=== PATIENT | male | born 1970 | race Caucasian/White ===

== ENCOUNTER 2020-01-26 08:04 | Inpatient (IN) | payer SELFPAY ==
[~2020-01-26] VITALS: Ht 172.7 cm; Wt 80.6 kg
[2020-01-26] VITALS (12 sets, daily range): BP systolic 69–119; BP diastolic 47–65
--- NOTE | 2020-01-26 08:37 | PHYS DOC ---
Past Medical History Past Medical History: Diverticulitis Past Surgical History: No Surgical History Smoking Status: Current Every Day Smoker Alcohol Use: Heavy Adult General Chief Complaint Chief Complaint: MULTIPLE COMPLAINTS HPI HPI Patient is a 49-year-old male who is a heavy drinker. He drinks more than a liter of wine every day. He states approximately 2 weeks ago he developed a dry hacking cough was treated with an albuterol inhaler and some cough medicine. He states the cough has gotten better but he's become profoundly weak. He's noticed that his urine is very dark in color. He denies any fever chills or sweats. He denies any hemoptysis or hematemesis. He denies any melena. He has been nauseous and not eating or drinking much. He has continued to smoke. He is stopped his wine approximately 3 days ago.[] Review of Systems Review of Systems Constitutional: Denies fever or chills [] Eyes: Denies change in visual acuity, redness, or eye pain [] HENT: Denies nasal congestion or sore throat [] Respiratory: Per history of present illness[] Cardiovascular: No additional information not addressed in HPI [] GI: Has been nauseous[] : Reports dark urine[] Musculoskeletal: Denies back pain or joint pain [] Integument: Denies rash or skin lesions [] Neurologic: Reports generalized weakness[] Endocrine: Denies polyuria or polydipsia [] All other systems were reviewed and found to be within normal limits, except as documented in this note. Current Medications Current Medications Current Medications Medications (Trade) Dose Ordered Sig/Akhil Start Time Stop Time Status Last Admin Dose Admin Albuterol/ Ipratropium (Duoneb) 3 ml 1X ONCE 01/26/20 08:45 01/26/20 08:46 DC 01/26/20 08:49 3 ML Famotidine (Pepcid Vial) 20 mg 1X ONCE 01/26/20 08:45 01/26/20 08:46 DC 01/26/20 09:05 20 MG Ondansetron HCl (Zofran) 4 mg PRN Q8HRS PRN 01/26/20 10:15 01/27/20 10:14 Potassium Chloride/Water 100 ml @ 50 mls/hr 1X ONCE 01/26/20 10:15 01/26/20 12:14 01/26/20 10:27 50 MLS/HR Potassium Chloride (Klor-Con) 40 meq 1X ONCE 01/26/20 10:15 01/26/20 10:17 DC 01/26/20 10:27 40 MEQ Sodium Chloride 1,000 ml @ 1,000 mls/hr 1X ONCE 01/26/20 10:30 01/26/20 11:29 01/26/20 10:30 1,000 MLS/HR Allergies Allergies Allergies Coded Allergies Type Severity Reaction Last Updated Verified No Known Drug Allergies 01/26/20 No Physical Exam Physical Exam Constitutional: Well developed, well nourished, no acute distress, non-toxic appearance. [] HENT: Normocephalic, atraumatic, bilateral external ears normal, oropharynx moist, no oral exudates, nose normal. [] Eyes: Pronounced scleral icterus. [] Neck: Normal range of motion, no tenderness, supple, no stridor. [] Cardiovascular:Heart rate regular rhythm, no murmur [] Lungs & Thorax: Bilateral breath sounds clear to auscultation [] Abdomen: Bowel sounds normal, soft, no tenderness, no masses, no pulsatile masses. [] Skin: Warm, dry, no erythema, no rash. [] Back: No tenderness, no CVA tenderness. [] Extremities: No tenderness, no cyanosis, no clubbing, ROM intact, no edema. [] Neurologic: Alert and oriented X 3, normal motor function, normal sensory function, no focal deficits noted. [] Psychologic: Affect normal, judgement normal, mood normal. [] Current Patient Data Vital Signs Vital Signs Date Time Temp Pulse Resp B/P (MAP) Pulse Ox O2 Delivery O2 Flow Rate FiO2 01/26/20 08:51 99 Room Air 01/26/20 08:32 97.7 92 20 103/55 (71) 97.7 Lab Values Laboratory Tests Test 01/26/20 08:18 01/26/20 09:39 White Blood Count 19.7 x10^3/uL (4.0-11.0) H Red Blood Count 4.70 x10^6/uL (4.30-5.70) Hemoglobin 16.0 g/dL (13.0-17.5) Hematocrit 45.9 % (39.0-53.0) Mean Corpuscular Volume 98 fL (79-100) Mean Corpuscular Hemoglobin 34 pg (25-35) Mean Corpuscular Hemoglobin Concent 35 g/dL (31-37) Red Cell Distribution Width 15.2 % (11.5-14.5) H Platelet Count 44 x10^3/uL (140-400) L Neutrophils (%) (Auto) 93 % (31-73) H Lymphocytes (%) (Auto) 1 % (24-48) L Monocytes (%) (Auto) 2 % (0-9) Eosinophils (%) (Auto) 4 % (0-3) H Basophils (%) (Auto) 0 % (0-3) Neutrophils # (Auto) 18.3 x10^3/uL (1.8-7.7) H Lymphocytes # (Auto) 0.1 x10^3/uL (1.0-4.8) L Monocytes # (Auto) 0.4 x10^3/uL (0.0-1.1) Eosinophils # (Auto) 0.8 x10^3/uL (0.0-0.7) H Basophils # (Auto) 0.0 x10^3/uL (0.0-0.2) Platelet Estimate Pending Sodium Level 124 mmol/L (136-145) L Potassium Level 2.0 mmol/L (3.5-5.1) *L Chloride Level 83 mmol/L (98-107) L Carbon Dioxide Level 24 mmol/L (21-32) Anion Gap 17 (6-14) H Blood Urea Nitrogen 107 mg/dL (8-26) H Creatinine 5.8 mg/dL (0.7-1.3) H Estimated GFR (Cockcroft-Gault) 10.4 BUN/Creatinine Ratio 18 (6-20) Glucose Level 113 mg/dL (70-99) H Calcium Level 7.5 mg/dL (8.5-10.1) L Total Bilirubin 11.4 mg/dL (0.2-1.0) H Aspartate Amino Transferase (AST) 319 U/L (15-37) H Alanine Aminotransferase (ALT) 204 U/L (16-63) H Alkaline Phosphatase 324 U/L (46-116) H Total Protein 5.4 g/dL (6.4-8.2) L Albumin 1.4 g/dL (3.4-5.0) L Albumin/Globulin Ratio 0.4 (1.0-1.7) L Lipase 97 U/L (73-393) Influenza Type A Antigen Negative (NEGATIVE) Influenza Type B Antigen Negative (NEGATIVE) Laboratory Tests 01/26/20 08:18 Laboratory Tests 01/26/20 08:18 EKG EKG EKG: Normal sinus rhythm rate of [address]-T changes[] Radiology/Procedures Radiology/Procedures []REASON: dry cough x2 weeks PROCEDURE: CHEST AP ONLY EXAM: Chest, single view. HISTORY: Cough. COMPARISON: None. FINDINGS: A frontal view of the chest is obtained. There is no infiltrate, pleural effusion or pneumothorax. The heart is normal in size. IMPRESSION: No acute pulmonary finding. Course & Med Decision Making Course & Med Decision Making Pertinent Labs and Imaging studies reviewed. (See chart for details) [CRITICAL CARE: Time spent was 35 minutes. This includes medical management, evaluation, reevaluation, discussion with consultants and family. Critical Care does NOT include time spent on separately billed procedures. ] ED course: Evaluation reveals a 49-year-old male with 2 week history of weakne ss. His laboratory studies were alarming. He is in acute liver failure with a bilirubin of greater than 11. He is also an acute renal failure. He had a total of 2 L of normal saline during his stay in the department. His potassium was low he was supplemented with 40 mEq of potassium chloride by mouth and 20 mEq IV. I did talk with the patient and his about his condition. Patient will be admitted to the ICU under the care of Dr. Moran with nephrology and gastroenterology consults. Dragon Disclaimer Dragon Disclaimer This electronic medical record was generated, in whole or in part, using a voice recognition dictation system. Departure Departure Impression: Primary Impression: Acute renal failure Additional Impressions: Hypokalemia Acute hepatitis Disposition: ADMITTED INPATIENT Admitting Physician: DARRYN Condition: GUARDED Problem Qualifiers Primary Impression: Acute renal failure Acute renal failure type: unspecified Qualified Codes: N17.9 - Acute kidney failure, unspecified ROSE WARNER DO Jan 26, 2020 08:37
[2020-01-26] MEDS ORDERED: IPRATRPIUM/ALBUTEROL 0.5/2.5MG 3 ML NEBU. NEB ONE (08:45)
[2020-01-26] MEDS ORDERED: IV NORMAL SALINE 1000ML BAG 1,000 ML IV ONE ×2 (08:45→10:30)
[2020-01-26] MEDS ORDERED: FAMOTIDINE 20 MG/2 ML VIAL IVP ONE (08:45)
--- NOTE | 2020-01-26 08:47 | RAD ---
EXAM: Chest, single view. HISTORY: Cough. COMPARISON: None. FINDINGS: A frontal view of the chest is obtained. There is no infiltrate, pleural effusion or pneumothorax. The heart is normal in size. IMPRESSION: No acute pulmonary finding. Electronically signed by: Sarah Zhong MD (01/26/2020 8:45 AM) [id number]
[2020-01-26 09:27] LABS: BASO % 0 % (0-3); EOS # 0.8 x10^3/uL (0.0-0.7); EOS % 4 % (0-3); HEMATOCRIT 45.9 % (39.0-53.0); LYMPH # 0.1 x10^3/uL (1.0-4.8); LYMPH % 1 % (24-48); MEAN CORPUSCULAR HEMOGLOBIN 34 pg (25-35); MEAN CORPUSCULAR HGB CONC 35 g/dL (31-37); MEAN CORPUSCULAR VOLUME 98 fL (79-100); MONO # 0.4 x10^3/uL (0.0-1.1); MONO % 2 % (0-9); NEUT # 18.3 x10^3/uL (1.8-7.7); NEUT % 93 % (31-73); RED CELL DISTRIBUTION WIDTH 15.2 % (11.5-14.5); WHITE BLOOD COUNT 19.7 x10^3/uL (4.0-11.0)
[2020-01-26 09:57] LABS: ALBUMIN 1.4 g/dL (3.4-5.0); ALBUMIN/GLOBULIN RATIO 0.4 (1.0-1.7); CALCIUM 7.5 mg/dL (8.5-10.1); CREATININE 5.8 mg/dL (0.7-1.3); GFR 10.4; TOTAL BILIRUBIN 11.4 mg/dL (0.2-1.0); TOTAL PROTEIN 5.4 g/dL (6.4-8.2)
[2020-01-26 10:09] LABS: INFLUENZA A PATIENT NEGATIVE (NEGATIVE); INFLUENZA B PATIENT NEGATIVE (NEGATIVE)
[2020-01-26] MEDS ORDERED: POTASSIUM CHLORIDE 20 MEQ TABLET.ER. PO ONE (10:15)
[2020-01-26] MEDS ORDERED: POTASSIUM CHLORIDE 20MEQ 100 ML IV ONE (10:15)
[2020-01-26] MEDS ORDERED: ONDANSETRON PF 4 MG/2 ML VIAL. IV PRN (10:15)
[2020-01-26 10:40] LABS: PLATELET COUNT 44 x10^3/uL (140-400)
[2020-01-26] MEDS ORDERED: POTASSIUM CHLORIDE 20 MEQ in IV NORMAL SALINE 1000ML BAG 1,000 ML IV SCH (10:45)
[2020-01-26 10:59] LABS: % BANDS 6 % (0-9); % LYMPHS 2 % (24-48); % SEGS 92 % (35-66); PLT ESTIMATE DECREASED (ADEQUATE)
--- NOTE | 2020-01-26 12:00 | NUR ---
Pt to room 110 from ED. A&Ox4. Pt placed on monitor. Oriented to ICU. VSS. Will monitor.
[2020-01-26] MEDS ORDERED: PIP/TAZO PER PHARMACY MC PRN (13:30)
[2020-01-26] MEDS ORDERED: VANCOMYCIN PER PHARMACY MC PRN (13:30)
[2020-01-26] MEDS: PIPERACILLIN/TAZOBACTAM 2.25 GM in IV NORMAL SALINE 50ML 50 ML IV SCH (13:41)
--- NOTE | 2020-01-26 13:49 | HP ---
ADMIT DATE: 01/26/2020 CHIEF COMPLAINT: Hacking cough, possible alcohol withdrawal, profound weakness, dark urine, and jaundice. HISTORY OF PRESENT ILLNESS: The patient is a pleasant middle-aged male who drinks 5 liters of wine a day, basically presented with the above chief complaints. He appears quite jaundiced. His white count is 19,000. His bilirubin is high at 11.4. He has multiple electrolyte disturbances including potassium of 2.0 and multiple others such as BUN of 107, creatinine of 5.8 and sodium of 124. I discussed the case with ER physician. We are going to admit the patient and he is going to the ICU with several consultations including GI and Nephrology. PAST MEDICAL HISTORY: Chronic alcoholism, diverticulitis, tobacco abuse. ALLERGIES: None. FAMILY HISTORY: Diabetes. SOCIAL HISTORY: He drinks and smokes heavily. MEDICATIONS: Reviewed, please refer to the MRAD. REVIEW OF SYSTEMS: GENERAL: No history of weight change, weakness or fevers. SKIN: He complains of yellow skin. EYES: No blurred, double or loss of vision. NOSE AND THROAT: No history of nosebleeds, hoarseness or sore throat. HEART: No history of palpitations, chest pain or shortness of breath on exertion. LUNGS: He complains of cough. GASTROINTESTINAL: Denies changes in appetite, nausea, vomiting, diarrhea or constipation. GENITOURINARY: He complains of dark urine. NEUROLOGIC: He complains of weakness. PSYCHIATRIC: No history of panic, anxiety or depression. ENDOCRINE: No history of heat or cold intolerance, polyuria or polydipsia. EXTREMITIES: Denies muscle weakness, joint pain, pain on walking or stiffness. PHYSICAL EXAMINATION: VITALS: Within normal limits and are stable. GENERAL: No apparent distress. Alert and oriented. HEENT: Normal cephalic atraumatic, external auditory canals are patent. Eyes: Extraocular muscles are intact, pupils are equally round and reactive to light and accommodation. MUSKULOSKELETAL: Well developed, well nourished, good range of motion. ENDOCRINE: No thyromegaly was palpated. LYMPHATICS: No cervical chain or axillary nodes were noted. HEMATOPOIETIC: No bruising. NECK: Supple, no JVD, no thyromegaly was noted. LUNGS: Clear to auscultation in all lung desai without rhonchi or wheezing. HEART: RRR, S1, S2 present. Peripheral pulses intact, no obvious murmurs were noted. ABDOMEN: He has some mild distention with decreased bowel sounds. EXTREMITIES: Without any cyanosis, clubbing, or edema. Pedal pulses intact, Homans sign is negative. NEUROLOGIC: He is profoundly weak. PSYCHIATRIC: He is little depressed. SKIN: He is jaundiced. VASCULAR: Good capillary refill, neurovascular bundle appears to be intact. LABORATORY DATA: Electrolytes: Sodium 124, potassium 2.0, chloride 83, bicarbonate 24, BUN 107, creatinine 5.8, glucose 113. White count 19, hemoglobin 16, platelets 44. Influenza testing is negative. His AST is high at 319 and ALT 204. ASSESSMENT AND PLAN: Acute on chronic renal failure, multiple electrolyte disturbances, hypokalemia, severe alcoholism, leukocytosis, and transaminitis. The patient has been admitted to the ICU. We are going to replace his potassium, give him IV fluids. Consult Nephrology. Consult GI. Consult Infectious Disease. We will check an INR to help clarify his hepatic status. Empiric IV antibiotics. Prognosis is extremely guarded, long term care phlebotomist. He is critically ill. TOTAL TIME: 31 minutes. DEVIN PUGA DO DR: TAVARES/luisito JOB#: [id number] / [id number]
--- NOTE | 2020-01-26 14:00 | NUR ---
BP continues to be low 80's/30'S. Pt is high on sepsis screening. Pt has had no urine output since admission and pt states he's not had any urine output x 2 days. Repeat potassium = 2.5. Call placed to Dr. Castle. Orders received.
--- NOTE | 2020-01-26 14:14 | NUR ---
Pharmacy Vancomycin Dosing Note S:Consulted to monitor and dose vancomycin started 01/26/20. O:MARISEL GONZALEZ is a 49 year old M with Empiric. Height: 5 feet, 8 inches Weight: 74.5 kg Crowley Body Weight: 68.40 Adjusted Body Weight: 70.84 Dosing Weight: Actual Other Antibiotics: ZOSYN LABS: Last BUN: 107 Last Creatinine: 5.8 Creatinine Clearance: 15 mL/min Last WBC: 19.7 Tmax (past 24 hours): 97.7 Microbiology: I/O: -- Drug Levels: Last dose given 01/26/20 at 1341 Vancomycin Dosing: Loading Dose: 1750 mg x1 Dosing Weight: Actual Target Trough: 10-20 A: Based on: P: 1. Hold further vancomycin dosing until after random level. 2. Follow up Random level on 01/28/20 at 1400 3. Pharmacy will continue to monitor, follow and adjust therapy as needed. JINNY BRYANT RPH, 01/26/20 [id number]
[2020-01-26] MEDS ORDERED: VANCOMYCIN 1.75 GM in IV NORMAL SALINE 500ML BAG 500 ML IV ONE (14:30)
[2020-01-26 15:04] LABS: CALCIUM 6.7 mg/dL (8.5-10.1); CREATININE 5.2 mg/dL (0.7-1.3); GFR 11.8; MAGNESIUM 2.2 mg/dL (1.8-2.4)
[2020-01-26 15:07] LABS: POTASSIUM 2.5 mmol/L (3.5-5.1)
[2020-01-26] MEDS ORDERED: LORazepam 1 MG TABLET PO PRN (15:15)
[2020-01-26] MEDS ORDERED: ALBUMIN HUMAN 5% 500 ML IV SCH (15:45)
[2020-01-26] MEDS ORDERED: ALBUMIN HUMAN 5% 500 ML IV ONE (15:45)
[2020-01-26] MEDS: POTASSIUM CHLORIDE 10MEQ 100 ML IV SCH ×7 (16:02→23:59)
--- NOTE | 2020-01-26 16:59 | PDOC ---
Infectious Disease Note Vital Sign Vital Signs Vital Signs Date Time Temp Pulse Resp B/P (MAP) Pulse Ox O2 Delivery O2 Flow Rate FiO2 01/26/20 15:00 84 24 82/52 (62) Room Air 01/26/20 13:00 99 01/26/20 12:00 97.8 97.8 Labs Lab Laboratory Tests Test 01/26/20 08:18 01/26/20 09:39 01/26/20 14:45 White Blood Count 19.7 x10^3/uL (4.0-11.0) Red Blood Count 4.70 x10^6/uL (4.30-5.70) Hemoglobin 16.0 g/dL (13.0-17.5) Hematocrit 45.9 % (39.0-53.0) Mean Corpuscular Volume 98 fL (79-100) Mean Corpuscular Hemoglobin 34 pg (25-35) Mean Corpuscular Hemoglobin Concent 35 g/dL (31-37) Red Cell Distribution Width 15.2 % (11.5-14.5) Platelet Count 44 x10^3/uL (140-400) Neutrophils (%) (Auto) 93 % (31-73) Lymphocytes (%) (Auto) 1 % (24-48) Monocytes (%) (Auto) 2 % (0-9) Eosinophils (%) (Auto) 4 % (0-3) Basophils (%) (Auto) 0 % (0-3) Neutrophils # (Auto) 18.3 x10^3/uL (1.8-7.7) Lymphocytes # (Auto) 0.1 x10^3/uL (1.0-4.8) Monocytes # (Auto) 0.4 x10^3/uL (0.0-1.1) Eosinophils # (Auto) 0.8 x10^3/uL (0.0-0.7) Basophils # (Auto) 0.0 x10^3/uL (0.0-0.2) Segmented Neutrophils % 92 % (35-66) Band Neutrophils % 6 % (0-9) Lymphocytes % 2 % (24-48) Platelet Estimate Decreased (ADEQUATE) Prothrombin Time 21.0 SEC (11.7-14.0) Prothromb Time International Ratio 1.8 (0.8-1.1) Sodium Level 124 mmol/L (136-145) 129 mmol/L (136-145) Potassium Level 2.0 mmol/L (3.5-5.1) 2.5 mmol/L (3.5-5.1) Chloride Level 83 mmol/L (98-107) 92 mmol/L (98-107) Carbon Dioxide Level 24 mmol/L (21-32) 20 mmol/L (21-32) Anion Gap 17 (6-14) 17 (6-14) Blood Urea Nitrogen 107 mg/dL (8-26) 105 mg/dL (8-26) Creatinine 5.8 mg/dL (0.7-1.3) 5.2 mg/dL (0.7-1.3) Estimated GFR (Cockcroft-Gault) 10.4 11.8 BUN/Creatinine Ratio 18 (6-20) Glucose Level 113 mg/dL (70-99) 101 mg/dL (70-99) Calcium Level 7.5 mg/dL (8.5-10.1) 6.7 mg/dL (8.5-10.1) Total Bilirubin 11.4 mg/dL (0.2-1.0) Aspartate Amino Transf (AST/SGOT) 319 U/L (15-37) Alanine Aminotransferase (ALT/SGPT) 204 U/L (16-63) Alkaline Phosphatase 324 U/L (46-116) Total Protein 5.4 g/dL (6.4-8.2) Albumin 1.4 g/dL (3.4-5.0) Albumin/Globulin Ratio 0.4 (1.0-1.7) Lipase 97 U/L (73-393) Influenza Type A Antigen Negative (NEGATIVE) Influenza Type B Antigen Negative (NEGATIVE) Magnesium Level 2.2 mg/dL (1.8-2.4) Objective Assessment ? sepsis Leukocytosis JHONY w/ electrolyte imbalances Acute hepatic failure Alcoholism Tobaccoism Plan Plan of Care D/c vancomycin given JHONY Continue Zosyn, renally dosed BC x 2 UA pending Await renal and GI input Monitor labs values Maintain aspiration precautions D/w nursing Critically ill Thank you [id number] Patient seen and examined. Chart reviewed in detail. Case discussed with LIBERAL ARTS DEAN agree with above plan. BETO GUPTA APRN Jan 26, 2020 16:59 TELMA COFFEY MD Jan 26, 2020 21:38
--- NOTE | 2020-01-26 17:20 | CONS ---
DATE OF CONSULTATION: 01/26/2020 This is Luis Antonio Sue, nurse practitioner dictating for Dr. Telma Xie, Infectious Disease. REFERRING PHYSICIAN: Kong De La Torre DO REASON FOR CONSULTATION: Probable sepsis. HISTORY OF PRESENT ILLNESS: This patient is a 49-year-old male who presented with a 2-week history of generalized weakness. He was recently seen at an urgent care center for a dry hacking cough. He was treated without an albuterol inhaler and cough medicine. The cough has since resolved. However, he continues to feel weak, fatigued and not feeling very well. On arrival to the ER, he was afebrile. He was found to have an elevated white blood cell count of 19,700. He was in acute renal failure with a creatinine of 5.8, BUN 107. Electrolytes were abnormal. He was jaundiced with a bilirubin of 11.4 and also elevated liver enzymes. Influenza screen was negative. Chest x-ray was normal. Urinalysis is pending. He was dosed with vancomycin and Zosyn for probable sepsis and admitted to the Intensive Care Unit. The patient has been having some abdominal pain associated with nausea and vomiting. He says he has been having some fevers, chills and body aches. He complains of urinary urgency, but has only been able to void once in the last 24 hours. His urine has been dark. He also has noticed his stools are pale. He and his have not noticed any skin color change. He normally drinks about a liter of wine a day, but has not in the last several days or so. He denies taking medication other than the recent albuterol inhaler and cough medicine. He denies having any known kidney or liver problems. Denies recent antibiotics prior to admission. PAST MEDICAL HISTORY: No significant past medical history. PAST SURGICAL HISTORY: Right arm orthopedic surgery. SOCIAL HISTORY: The patient is and lives at home. He is employed performing a maintenance type work. He smokes a pack a day. He normally drinks about a liter of wine a day. History of substance abuse. FAMILY HISTORY: Diabetes. MEDICATIONS: Vancomycin, Zosyn, albumin, IV fluids, potassium, DuoNeb and Zofran. ALLERGIES: No known drug allergies. REVIEW OF SYSTEMS: Per HPI, otherwise all other review of systems is negative. PHYSICAL EXAMINATION: VITAL SIGNS: Temperature is 97.8, blood pressure 82/52, heart rate 84, respiratory rate 24, pulse oximetry is 99% on room air. BMI 25. HEENT: Pupils equally round. Mild icterus. Oral cavity pink and dry. Dentures in place. NECK: Supple. LUNGS: Clear to auscultation. CARDIAC: S1 and S2 regular. ABDOMEN: Nondistended, soft. No guarding or rebound. Bowel sounds present. EXTREMITIES: No gross edema or cyanosis. SKIN: Warm to touch. No signs of rash. Jaundice. NEUROLOGIC: Alert and answering questions appropriately. LABORATORY DATA: Today's WBC 19.7, hemoglobin 16.0, platelets 44,000, segs 92%, bands 6%. Sodium 129 from 124, potassium 2.5, creatinine 5.2, BUN 105, glucose 101. Total bilirubin 11.4, AST 319, ALT 204, alkaline phosphatase 324. Albumin 1.4. Lipase 97. Influenza screen negative. Chest x-ray is unremarkable. Urinalysis is pending. Hepatitis panel is pending. IMPRESSION: 1. Questionable sepsis. 2. Leukocytosis. 3. Acute kidney injury with electrolyte imbalances. 4. Acute hepatic failure. 5. Alcoholism. 6. Tobaccoism. PLAN: 1. Discontinue the vancomycin given acute kidney injury. 2. Continue the Zosyn renally dose. 3. Monitor platelets closely. 4. Obtain blood cultures x 2. 5. Await renal and GI input. 6. Maintain aspiration precautions. 7. Discussed with nursing. 8. Critically ill. Thank you, Dr. De La Torre, for asking us to participate in this patient's care. Should you have further questions or concerns, please call. TELMA COFFEY MD DR: CHANELLE/luisito JOB#: [id number] / [id number]
[2020-01-26] MEDS ORDERED: cloNIDine HCL 0.1 MG TABLET PO PRN (17:45)
[2020-01-26] MEDS: diphenhydrAMINE 50 MG/ML VIAL IVP PRN (18:15)
[2020-01-26] MEDS: HALOPERIDOL LACTATE 5 MG/ML VIAL. IVP PRN (18:23)
[2020-01-26] MEDS ORDERED: IV NORMAL SALINE 500ML BAG 500 ML IV PRN (18:45)
[2020-01-26] MEDS ORDERED: ATROPINE 0.5 MG/5 ML DISP.SYRINGE. IV PRN (18:45)
--- NOTE | 2020-01-26 18:45 | NUR ---
at 1815 pt began vigorously shivering, making a continual grunting noise. Pt stated he was freezing and couldn't get comfortable. Pt appearing to be starting alcohol withdrawals. Pt given withdrawal medications per protocol. Call to Dr. De La Torre, received precedex order. Temperature rechecked - 103.2 axillary. ID paged. Ice packs placed on patient.
[2020-01-26] MEDS: DEXMEDETOMIDINE 400 MCG in IV NORMAL SALINE 100ML 96 ML IV PRN (18:57)
[2020-01-26 20:57] LABS: CALCIUM 6.4 mg/dL (8.5-10.1); CREATININE 5.2 mg/dL (0.7-1.3); GFR 11.8
--- NOTE | 2020-01-26 20:58 | EKG ---
[facility] [address] [place] [address] Test Date: 2020-01-26 Test Time: 10:47:14 Pat Name: MARISEL GONZALEZ Department: Room: Gender: M Unit Educator: : 1970 Requested By: ROSE WARNER Order Number: [id number] Reading MD: Measurements Intervals [place] Rate: 91 P: MO: QRS: 32 QRSD: 122 T: 28 QT: 340 QTc: 425 Interpretive Statements ATRIAL FLUTTER ABNORMAL ECG RI6.01 No previous ECG available for comparison
[2020-01-26 21:06] LABS: POTASSIUM 2.9 mmol/L (3.5-5.1)
--- NOTE | 2020-01-26 21:45 | NUR ---
critically low potassium paged and reported to Dr De La Torre, new orders received. will pass on in report, will continue to closely monitor.
[2020-01-26] MEDS ORDERED: IV NORMAL SALINE 500ML BAG 500 ML IV ONE (22:00)
--- NOTE | 2020-01-26 22:26 | CONS ---
DATE OF CONSULTATION: REQUESTING PHYSICIAN: Hospitalist. REASON FOR CONSULTATION: Renal failure. HISTORY OF PRESENT ILLNESS: A 49-year-old gentleman with history of alcoholism. The patient presents with weakness, cough, and jaundice. Laboratories are notable for kidney failure and liver failure. In this setting, Nephrology evaluation is requested. The patient in addition to excessive alcohol use of 5 liters of wine a day, has apparently also been taking a significant number of ibuprofen. PAST MEDICAL HISTORY: Alcoholism, diverticulitis, and tobacco use. ALLERGIES: None. MEDICATIONS: Noted, reviewed per medication list. FAMILY HISTORY: Noncontributory. SOCIAL HISTORY: The patient drinks 5 liters of wine a day. He smokes. REVIEW OF SYSTEMS: No headache, sinus problem, nasal drainage, epistaxis, change in vision or hearing. No difficulty swallowing. No fever, chills, cough, sputum production or hemoptysis. No chest pain, shortness of breath, PND, orthopnea, dyspnea on exertion. No abdominal distention. He has had jaundice and icterus. No seizures or malignancies. PHYSICAL EXAMINATION: GENERAL APPEARANCE: The patient is awake and conversant. HEENT: Scleral icterus bilaterally. Marked jaundice. NECK: No increased JVD. No thyromegaly, mass, or adenopathy. LUNGS: Clear. CARDIAC: Without S3 or rub. ABDOMEN: Distended, soft, nontender. EXTREMITIES: No edema. NEUROLOGIC: Nonfocal, nonlocalizing. PSYCHIATRIC: Fair attention to detail. Dysphoric affect. SKIN: Jaundice. LABORATORY DATA: Sodium 124, potassium 2, chloride 83, CO2 of 24, BUN 107, creatinine 5.8, GFR is 10, and calcium 7.5. Total bilirubin 11.4, AST 319, ALT 204, alkaline phosphatase 324, total protein ____, and lipase 97. White count 19 7, hemoglobin 16, hematocrit 45.9, and platelets 144. Influenza A and B are negative. IMPRESSION: Liver failure with renal failure -- may in part have prerenal state. He also likely has acute tubular necrosis and/or interstitial nephritis associated with nonsteroidal anti-inflammatory drug use. Certainly may have ensuing hepatorenal syndrome as well. RECOMMENDATIONS: 1. Fluid balance. 2. Supplement, potassium is extremely low. 3. Assess magnesium level, is likely to be low as well. 4. No need for acute dialysis, but likely will be needed. We will follow. JUAN JOSÉ CORDERO MD DR: RADHA/luisito JOB#: [id number] / [id number]
[2020-01-26] MEDS: NOREPINEPHRINE VIAL 8 MG in IV DEXTROSE 5% 250 ML IV PRN (22:58)
[2020-01-27] VITALS (26 sets, daily range): BP systolic 69–157; BP diastolic 46–78
[2020-01-27] MEDS: PIPERACILLIN/TAZOBACTAM 2.25 GM in IV NORMAL SALINE 50ML 50 ML IV SCH ×2 (00:05→06:05)
[2020-01-27] MEDS: POTASSIUM CHLORIDE 10MEQ 100 ML IV SCH (00:53)
[2020-01-27 04:26] LABS: BASO % 0 % (0-3); EOS # 0.4 x10^3/uL (0.0-0.7); EOS % 2 % (0-3); HEMATOCRIT 38.4 % (39.0-53.0); HEMOGLOBIN 13.2 g/dL (13.0-17.5); LYMPH # 0.3 x10^3/uL (1.0-4.8); LYMPH % 1 % (24-48); MEAN CORPUSCULAR HEMOGLOBIN 34 pg (25-35); MEAN CORPUSCULAR HGB CONC 34 g/dL (31-37); MEAN CORPUSCULAR VOLUME 99 fL (79-100); MONO # 0.8 x10^3/uL (0.0-1.1); MONO % 4 % (0-9); NEUT # 17.3 x10^3/uL (1.8-7.7); NEUT % 92 % (31-73); PLATELET COUNT 33 x10^3/uL (140-400); RED BLOOD COUNT 3.88 x10^6/uL (4.30-5.70); RED CELL DISTRIBUTION WIDTH 15.2 % (11.5-14.5); WHITE BLOOD COUNT 18.8 x10^3/uL (4.0-11.0)
[2020-01-27 04:45] LABS: ALBUMIN 1.6 g/dL (3.4-5.0); ALBUMIN/GLOBULIN RATIO 0.5 (1.0-1.7); CALCIUM 6.6 mg/dL (8.5-10.1); CREATININE 5.1 mg/dL (0.7-1.3); GFR 12.1; MAGNESIUM 2.1 mg/dL (1.8-2.4); POTASSIUM 3.1 mmol/L (3.5-5.1); TOTAL BILIRUBIN 11.6 mg/dL (0.2-1.0); TOTAL PROTEIN 4.7 g/dL (6.4-8.2)
[2020-01-27] MEDS: ALBUMIN HUMAN 5% 250 ML IV SCH ×3 (07:59→23:03)
[2020-01-27] MEDS: HALOPERIDOL LACTATE 5 MG/ML VIAL. IVP PRN ×2 (09:30→12:25)
[2020-01-27] MEDS: diphenhydrAMINE 50 MG/ML VIAL IVP PRN ×2 (09:43→12:25)
--- NOTE | 2020-01-27 09:44 | PDOC2 ---
GI CONSULT Reason For Consult: acute hepatitis HPI: HPI: 49 y/o male admitted through ER yesterday morning, currently in ICU and unable to provide much meaningful history. Per chart and nurse, ill x 2 weeks at home w/ hematemesis and hematuria. No bleeding here. Apparently drinks a box of Franzia wine daily and takes 1000mg ibuprofen TID. Withdrawal symptoms last night. Multiple lab abnormalities as below w/ plans for dialysis today, had a fever of 103.2 last evening. ER note indicates h/o cough. Has a regular diet ordered. PMH: PMH: alcoholism FH: Family History: Other (unable to obtain) Social History: ALCOHOL: heavy Drugs: Marijuana ROS: Per HPI. Vitals: Vitals: Vital Signs Date Time Temp Pulse Resp B/P (MAP) Pulse Ox O2 Delivery O2 Flow Rate FiO2 01/27/20 06:00 76 29 101/63 (76) 98 Nasal Cannula 2.0 01/27/20 04:00 97.4 97.4 Labs: Labs: Laboratory Tests Test 01/26/20 14:45 01/26/20 20:35 01/27/20 04:00 Sodium Level 129 mmol/L (136-145) 128 mmol/L (136-145) 131 mmol/L (136-145) Potassium Level 2.5 mmol/L (3.5-5.1) 2.9 mmol/L (3.5-5.1) 3.1 mmol/L (3.5-5.1) Chloride Level 92 mmol/L (98-107) 93 mmol/L (98-107) 96 mmol/L (98-107) Carbon Dioxide Level 20 mmol/L (21-32) 17 mmol/L (21-32) 15 mmol/L (21-32) Anion Gap 17 (6-14) 18 (6-14) 20 (6-14) Blood Urea Nitrogen 105 mg/dL (8-26) 106 mg/dL (8-26) 107 mg/dL (8-26) Creatinine 5.2 mg/dL (0.7-1.3) 5.2 mg/dL (0.7-1.3) 5.1 mg/dL (0.7-1.3) Estimated GFR (Cockcroft-Gault) 11.8 11.8 12.1 Glucose Level 101 mg/dL (70-99) 89 mg/dL (70-99) 100 mg/dL (70-99) Calcium Level 6.7 mg/dL (8.5-10.1) 6.4 mg/dL (8.5-10.1) 6.6 mg/dL (8.5-10.1) Magnesium Level 2.2 mg/dL (1.8-2.4) 2.1 mg/dL (1.8-2.4) Lactic Acid Level 1.4 mmol/L (0.4-2.0) White Blood Count 18.8 x10^3/uL (4.0-11.0) Red Blood Count 3.88 x10^6/uL (4.30-5.70) Hemoglobin 13.2 g/dL (13.0-17.5) Hematocrit 38.4 % (39.0-53.0) Mean Corpuscular Volume 99 fL (79-100) Mean Corpuscular Hemoglobin 34 pg (25-35) Mean Corpuscular Hemoglobin Concent 34 g/dL (31-37) Red Cell Distribution Width 15.2 % (11.5-14.5) Platelet Count 33 x10^3/uL (140-400) Neutrophils (%) (Auto) 92 % (31-73) Lymphocytes (%) (Auto) 1 % (24-48) Monocytes (%) (Auto) 4 % (0-9) Eosinophils (%) (Auto) 2 % (0-3) Basophils (%) (Auto) 0 % (0-3) Neutrophils # (Auto) 17.3 x10^3/uL (1.8-7.7) Lymphocytes # (Auto) 0.3 x10^3/uL (1.0-4.8) Monocytes # (Auto) 0.8 x10^3/uL (0.0-1.1) Eosinophils # (Auto) 0.4 x10^3/uL (0.0-0.7) Basophils # (Auto) 0.0 x10^3/uL (0.0-0.2) BUN/Creatinine Ratio 21 (6-20) Total Bilirubin 11.6 mg/dL (0.2-1.0) Aspartate Amino Transf (AST/SGOT) 409 U/L (15-37) Alanine Aminotransferase (ALT/SGPT) 219 U/L (16-63) Alkaline Phosphatase 228 U/L (46-116) Total Protein 4.7 g/dL (6.4-8.2) Albumin 1.6 g/dL (3.4-5.0) Albumin/Globulin Ratio 0.5 (1.0-1.7) Allergies: Coded Allergies: No Known Drug Allergies (Unverified , 01/26/20) Medications: Current Medications Medications (Trade) Dose Ordered Sig/Akhil Route PRN Reason Start Time Stop Time Status Last Admin Dose Admin Potassium Chloride/Water 100 ml @ 50 mls/hr 1X ONCE IV 01/26/20 10:15 01/26/20 12:14 DC 01/26/20 10:27 Potassium Chloride (Klor-Con) 40 meq 1X ONCE PO 01/26/20 10:15 01/26/20 10:17 DC 01/26/20 10:27 Potassium Chloride 20 meq/ Sodium Chloride 1,010 ml @ 150 mls/hr Q6H44M IV 01/26/20 10:45 01/26/20 21:03 DC 01/26/20 12:46 Sodium Chloride 1,000 ml @ 1,000 mls/hr 1X ONCE IV 01/26/20 10:30 01/26/20 11:29 DC 01/26/20 10:30 Vancomycin HCl (Vanco Per Pharmacy) 1 each PRN DAILY PRN MC SEE COMMENTS 01/26/20 13:30 01/26/20 16:14 DC 01/26/20 14:13 Piperacillin Sod/ Tazobactam Sod 2.25 gm/Sodium Chloride 50 ml @ 100 mls/hr Q6HRS IV 01/26/20 14:00 01/27/20 06:05 Vancomycin HCl 1.75 gm/Sodium Chloride 500 ml @ 250 mls/hr ONCE ONCE IV 01/26/20 14:30 01/26/20 16:29 DC 01/26/20 13:41 Potassium Chloride/Water 100 ml @ 100 mls/hr Q1H IV 01/26/20 15:45 01/26/20 19:44 DC 01/26/20 18:23 Albumin Human 500 ml @ 125 mls/hr 1X ONCE IV 01/26/20 15:45 01/26/20 19:44 DC 01/26/20 16:01 Albumin Human 500 ml @ 25 mls/hr Q20H IV 01/26/20 15:45 01/27/20 07:49 DC 01/26/20 16:04 Lorazepam (Ativan Inj) 2 mg PRN Q1HR PRN IV For CIWA 8-14 01/26/20 17:45 01/27/20 09:43 Lorazepam (Ativan Inj) 4 mg PRN Q1HR PRN IV For CIWA 15 or greater 01/26/20 17:45 01/27/20 09:30 Haloperidol Lactate (Haldol Inj) 5 mg PRN Q4HRS PRN IVP Hallucinatns,Confusn,Delirium 01/26/20 17:45 01/27/20 09:30 Diphenhydramine HCl (Benadryl) 25 mg PRN Q15MIN PRN IVP EPS symptoms 2'Haldol admin 01/26/20 17:45 01/27/20 09:43 Dexmedetomidine HCl 400 mcg/ Sodium Chloride 100 ml @ 0 mls/hr CONT PRN IV PER PROTOCOL 01/26/20 18:45 01/27/20 00:00 Potassium Chloride/Sodium Chloride 1,000 ml @ 150 mls/hr Q6H40M IV 01/26/20 21:30 01/27/20 06:05 Potassium Chloride/Water 100 ml @ 100 mls/hr Q1H IV 01/26/20 22:00 01/27/20 01:59 DC 01/27/20 00:53 Norepinephrine Bitartrate 8 mg/ Dextrose 258 ml @ 14.416 mls/ hr CONT PRN IV PER PROTOCOL 01/26/20 22:00 01/26/20 22:58 Sodium Chloride 500 ml @ 500 mls/hr 1X ONCE IV 01/26/20 22:00 01/26/20 23:00 DC 01/26/20 21:57 Albumin Human 250 ml @ 25 mls/hr Q10H IV 01/27/20 08:00 01/27/20 07:59 Imaging: Imaging: CXR 01/25 IMPRESSION: No acute pulmonary finding. PE: GEN: NAD HEENT: Atraumatic, PERRL LUNGS: CTAB HEART: RRR ABD: NABS, S/ND/NT EXTREMITY: No edema SKIN: No rashes, no jaundice NEURO/PSYCH: drowsy, responds w/ yes or no A/P: A/P: ?cough ?hematemesis Alcohol abuse/withdrawal Fever, leukocytosis, hypotension JHONY, hyponatremia, hypokalemia, hypocalcemia Elevated LFTs/?alcoholic hepatitis, coagulopathy, thrombocytopenia -- Acute hepatitis panel, CK, and blood culture ordered. Withdrawal precautions per Dr. De La Torre. Check abd US. Add PPI - PO as has diet ordered. Monitor labs. NBA BACON Jan 27, 2020 09:44
[2020-01-27] MEDS: DEXMEDETOMIDINE 400 MCG in IV NORMAL SALINE 100ML 96 ML IV PRN ×5 (09:50→20:46)
--- NOTE | 2020-01-27 09:54 | PDOC ---
Infectious Disease Note Subjective: Subjective Pt is confused tachycardic on pressors T went up from 98 to 103 with withdrawl awaiting dialysis cath placement UO low Vital Signs: Vital Signs Vital Signs Date Time Temp Pulse Resp B/P (MAP) Pulse Ox O2 Delivery O2 Flow Rate FiO2 01/27/20 06:00 76 29 101/63 (76) 98 Nasal Cannula 2.0 01/27/20 04:00 97.4 97.4 Physical Exam: PHYSICAL EXAM GEN Pt is sleepy but arousable, HEENT: Pupils equally round. + icterus. Oral cavity pink and dry. Dentures in place. NECK: Supple. LUNGS: Clear to auscultation. CARDIAC: S1 and S2 regular. ABDOMEN: Nondistended, soft. No guarding or rebound. Bowel sounds present. hillman concentrated urine EXTREMITIES: No gross edema or cyanosis. SKIN: Warm to touch. No signs of rash. Jaundice. NEUROLOGIC: agitated,restless, arousable Medications: Inpatient Meds: Current Medications Medications (Trade) Dose Ordered Sig/Akhil Start Time Stop Time Status Last Admin Dose Admin Albumin Human 250 ml @ 25 mls/hr Q10H 01/27/20 08:00 01/27/20 07:59 25 MLS/HR Albuterol/ Ipratropium (Duoneb) 3 ml 1X ONCE 01/26/20 08:45 01/26/20 08:46 DC 01/26/20 08:49 3 ML Atropine Sulfate (ATROPINE 0.5mg SYRINGE) 0.5 mg PRN Q5MIN PRN 01/26/20 18:45 Clonidine HCl (Catapres) 0.1 mg PRN Q1HR PRN 01/26/20 17:45 Dexmedetomidine HCl 400 mcg/ Sodium Chloride 100 ml @ 0 mls/hr CONT PRN 01/26/20 18:45 01/27/20 00:00 14.9 MLS/HR Diphenhydramine HCl (Benadryl) 25 mg PRN Q15MIN PRN 01/26/20 17:45 01/26/20 18:15 25 MG Famotidine (Pepcid Vial) 20 mg 1X ONCE 01/26/20 08:45 01/26/20 08:46 DC 01/26/20 09:05 20 MG Haloperidol Lactate (Haldol Inj) 5 mg PRN Q4HRS PRN 01/26/20 17:45 01/27/20 09:30 5 MG Lorazepam (Ativan Inj) 4 mg PRN Q1HR PRN 01/26/20 17:45 01/27/20 09:30 4 MG Lorazepam (Ativan) 1 mg PRN Q6HRS PRN 01/26/20 15:15 UNV Norepinephrine Bitartrate 8 mg/ Dextrose 258 ml @ 14.416 mls/ hr CONT PRN 01/26/20 22:00 01/26/20 22:58 14.416 MLS/HR Ondansetron HCl (Zofran) 4 mg PRN Q8HRS PRN 01/26/20 10:15 01/27/20 10:14 Piperacillin Sod/ Tazobactam Sod (Zosyn Per Pharmacy) 1 each PRN DAILY PRN 01/26/20 13:30 Piperacillin Sod/ Tazobactam Sod 2.25 gm/Sodium Chloride 50 ml @ 100 mls/hr Q6HRS 01/26/20 14:00 01/27/20 06:05 100 MLS/HR Potassium Chloride 20 meq/ Sodium Chloride 1,010 ml @ 150 mls/hr Q6H44M 01/26/20 10:45 01/26/20 21:03 DC 01/26/20 12:46 150 MLS/HR Potassium Chloride/Sodium Chloride 1,000 ml @ 150 mls/hr Q6H40M 01/26/20 21:30 01/27/20 06:05 150 MLS/HR Potassium Chloride/Water 100 ml @ 100 mls/hr Q1H 01/26/20 22:00 01/27/20 01:59 DC 01/27/20 00:53 100 MLS/HR Potassium Chloride (Klor-Con) 40 meq 1X ONCE 01/26/20 10:15 01/26/20 10:17 DC 01/26/20 10:27 40 MEQ Sodium Chloride 500 ml @ 500 mls/hr 1X ONCE 01/26/20 22:00 01/26/20 23:00 DC 01/26/20 21:57 500 MLS/HR Vancomycin HCl (Vanco Per Pharmacy) 1 each PRN DAILY PRN 01/26/20 13:30 01/26/20 16:14 DC 01/26/20 14:13 1 EACH Vancomycin HCl (Vancomycin Random Level) 1 each 1X ONCE 01/28/20 14:00 01/26/20 16:16 DC Vancomycin HCl 1.75 gm/Sodium Chloride 500 ml @ 250 mls/hr ONCE ONCE 01/26/20 14:30 01/26/20 16:29 DC 01/26/20 13:41 250 MLS/HR Labs: Lab Laboratory Tests Test 01/26/20 14:45 01/26/20 20:35 01/27/20 04:00 Sodium Level 129 mmol/L (136-145) 128 mmol/L (136-145) 131 mmol/L (136-145) Potassium Level 2.5 mmol/L (3.5-5.1) 2.9 mmol/L (3.5-5.1) 3.1 mmol/L (3.5-5.1) Chloride Level 92 mmol/L (98-107) 93 mmol/L (98-107) 96 mmol/L (98-107) Carbon Dioxide Level 20 mmol/L (21-32) 17 mmol/L (21-32) 15 mmol/L (21-32) Anion Gap 17 (6-14) 18 (6-14) 20 (6-14) Blood Urea Nitrogen 105 mg/dL (8-26) 106 mg/dL (8-26) 107 mg/dL (8-26) Creatinine 5.2 mg/dL (0.7-1.3) 5.2 mg/dL (0.7-1.3) 5.1 mg/dL (0.7-1.3) Estimated GFR (Cockcroft-Gault) 11.8 11.8 12.1 Glucose Level 101 mg/dL (70-99) 89 mg/dL (70-99) 100 mg/dL (70-99) Calcium Level 6.7 mg/dL (8.5-10.1) 6.4 mg/dL (8.5-10.1) 6.6 mg/dL (8.5-10.1) Magnesium Level 2.2 mg/dL (1.8-2.4) 2.1 mg/dL (1.8-2.4) Lactic Acid Level 1.4 mmol/L (0.4-2.0) White Blood Count 18.8 x10^3/uL (4.0-11.0) Red Blood Count 3.88 x10^6/uL (4.30-5.70) Hemoglobin 13.2 g/dL (13.0-17.5) Hematocrit 38.4 % (39.0-53.0) Mean Corpuscular Volume 99 fL (79-100) Mean Corpuscular Hemoglobin 34 pg (25-35) Mean Corpuscular Hemoglobin Concent 34 g/dL (31-37) Red Cell Distribution Width 15.2 % (11.5-14.5) Platelet Count 33 x10^3/uL (140-400) Neutrophils (%) (Auto) 92 % (31-73) Lymphocytes (%) (Auto) 1 % (24-48) Monocytes (%) (Auto) 4 % (0-9) Eosinophils (%) (Auto) 2 % (0-3) Basophils (%) (Auto) 0 % (0-3) Neutrophils # (Auto) 17.3 x10^3/uL (1.8-7.7) Lymphocytes # (Auto) 0.3 x10^3/uL (1.0-4.8) Monocytes # (Auto) 0.8 x10^3/uL (0.0-1.1) Eosinophils # (Auto) 0.4 x10^3/uL (0.0-0.7) Basophils # (Auto) 0.0 x10^3/uL (0.0-0.2) BUN/Creatinine Ratio 21 (6-20) Total Bilirubin 11.6 mg/dL (0.2-1.0) Aspartate Amino Transf (AST/SGOT) 409 U/L (15-37) Alanine Aminotransferase (ALT/SGPT) 219 U/L (16-63) Alkaline Phosphatase 228 U/L (46-116) Total Protein 4.7 g/dL (6.4-8.2) Albumin 1.6 g/dL (3.4-5.0) Albumin/Globulin Ratio 0.5 (1.0-1.7) Objective: Assessment: Fever could be from withdrawl as temp went up within minutes of withdrawl onset Heavy ETOH use ETOH withdrawl Questionable sepsis. Leukocytosis. Acute kidney injury with electrolyte imbalances. Acute hepatic failure.Hyperbilirubinemia Likely hepatorenal syndrome Marijhuana use Tobaccoism. Thrombocytopenia Plan: Plan of Care s/p vancomycin once 01/25 Continue Zosyn, renally dosed UA pending F/U BC awaiting dialysis GI and Renal are following Monitor labs values Check CPK Maintain aspiration precautions D/W D/w nursing Critically ill MONICA BOSTON MD Jan 27, 2020 09:54
--- NOTE | 2020-01-27 10:00 | NUR ---
Pt began having symptoms of alcohol withdrawal, shivering and groaning/grunting, temp spike to 101.2 axillary. Pt given meds per protocol. Will continue to monitor closely.
--- NOTE | 2020-01-27 10:48 | NUR ---
SS following for discharge planning. SS reviewed pt chart. Pt is self pay pt. HCFS following for self pay status. Pt is from home with spouse and is currently requiring oxygen. SS will continue to follow for discharge planning.
[2020-01-27] MEDS ORDERED: PANTOPRAZOLE 40 MG TABLET.DR. PO SCH (11:00)
[2020-01-27] MEDS ORDERED: LIDOCAINE WITH 8.4% SOD BICARB 3 ML DISP.SYRIN. ONE (11:08)
[2020-01-27] MEDS ORDERED: MEROPENEM 500 MG in IV NORMAL SALINE 50ML 50 ML IV SCH (12:00)
--- NOTE | 2020-01-27 12:11 | PDOC ---
Renal-Progress Notes Subjective Notes Notes CONFUSED History of Present Illness Hx of present illness NO CHANGE Vitals Vitals Vital Signs Date Time Temp Pulse Resp B/P (MAP) Pulse Ox O2 Delivery O2 Flow Rate FiO2 01/27/20 11:00 101.5 96 36 83/52 (62) 97 Nasal Cannula 2.0 101.5 Weight Weight [ ] I.O. Intake and Output Intake and Output 01/27/20 07:00 Intake Total 6798.2 ml Output Total 285 ml Balance 6513.2 ml Intake Oral 0 ml IV Total 4553.2 ml Other 2245 ml Output Urine Total 285 ml Labs Labs Laboratory Tests Test 01/26/20 14:45 01/26/20 20:35 01/27/20 04:00 Sodium Level 129 mmol/L (136-145) 128 mmol/L (136-145) 131 mmol/L (136-145) Potassium Level 2.5 mmol/L (3.5-5.1) 2.9 mmol/L (3.5-5.1) 3.1 mmol/L (3.5-5.1) Chloride Level 92 mmol/L (98-107) 93 mmol/L (98-107) 96 mmol/L (98-107) Carbon Dioxide Level 20 mmol/L (21-32) 17 mmol/L (21-32) 15 mmol/L (21-32) Anion Gap 17 (6-14) 18 (6-14) 20 (6-14) Blood Urea Nitrogen 105 mg/dL (8-26) 106 mg/dL (8-26) 107 mg/dL (8-26) Creatinine 5.2 mg/dL (0.7-1.3) 5.2 mg/dL (0.7-1.3) 5.1 mg/dL (0.7-1.3) Estimated GFR (Cockcroft-Gault) 11.8 11.8 12.1 Glucose Level 101 mg/dL (70-99) 89 mg/dL (70-99) 100 mg/dL (70-99) Calcium Level 6.7 mg/dL (8.5-10.1) 6.4 mg/dL (8.5-10.1) 6.6 mg/dL (8.5-10.1) Magnesium Level 2.2 mg/dL (1.8-2.4) 2.1 mg/dL (1.8-2.4) Lactic Acid Level 1.4 mmol/L (0.4-2.0) White Blood Count 18.8 x10^3/uL (4.0-11.0) Red Blood Count 3.88 x10^6/uL (4.30-5.70) Hemoglobin 13.2 g/dL (13.0-17.5) Hematocrit 38.4 % (39.0-53.0) Mean Corpuscular Volume 99 fL (79-100) Mean Corpuscular Hemoglobin 34 pg (25-35) Mean Corpuscular Hemoglobin Concent 34 g/dL (31-37) Red Cell Distribution Width 15.2 % (11.5-14.5) Platelet Count 33 x10^3/uL (140-400) Neutrophils (%) (Auto) 92 % (31-73) Lymphocytes (%) (Auto) 1 % (24-48) Monocytes (%) (Auto) 4 % (0-9) Eosinophils (%) (Auto) 2 % (0-3) Basophils (%) (Auto) 0 % (0-3) Neutrophils # (Auto) 17.3 x10^3/uL (1.8-7.7) Lymphocytes # (Auto) 0.3 x10^3/uL (1.0-4.8) Monocytes # (Auto) 0.8 x10^3/uL (0.0-1.1) Eosinophils # (Auto) 0.4 x10^3/uL (0.0-0.7) Basophils # (Auto) 0.0 x10^3/uL (0.0-0.2) BUN/Creatinine Ratio 21 (6-20) Total Bilirubin 11.6 mg/dL (0.2-1.0) Aspartate Amino Transf (AST/SGOT) 409 U/L (15-37) Alanine Aminotransferase (ALT/SGPT) 219 U/L (16-63) Alkaline Phosphatase 228 U/L (46-116) Creatine Kinase 76 U/L (39-308) Total Protein 4.7 g/dL (6.4-8.2) Albumin 1.6 g/dL (3.4-5.0) Albumin/Globulin Ratio 0.5 (1.0-1.7) Review of Systems Constitutional: yes: weakness Ears/Nose/Throat: Yes: no symptom reported Eyes: Yes: no symptom reported Pulmonary: Yes no symptom reported Cardiovascular: Yes no symptom reported Gastrointestional: Yes: no symptom reported Genitourinary: Yes: no symptom reported Musculoskeletal: Yes: no symptom reported Skin: Yes no symptom reported Psychiatric/Neurological: Yes: no symptom reported Endocrine: Yes: no symptom reported Physical Exam General Appearance: no apparent distress Skin: warm Respiratory: decreased breath sounds Heart: S1S2 Abdomen: soft Genitourinary: bladder flat Extremities: pulses present Neurology: alert Assessment Assessment IMP JHONY HYPERKALEMIA ETOH ABUSE HX ETOH RELATED HEPATITIS ? LIVER MASS LEUCOCYTOSIS THROMBOCYTOPENIA HEPATORENAL HYPOKALEMIA MET ACIDOSIS PLAN TEMP HD LINE START HD REPLACE K SUPPORTIVE CARE D/W BELA BUCKNER MD Jan 27, 2020 12:11
[2020-01-27] MEDS: MEROPENEM 500 MG in IV NORMAL SALINE 50ML 50 ML IV SCH ×2 (12:29→20:46)
[2020-01-27] MEDS ORDERED: POTASSIUM CHLORIDE 20MEQ 100 ML IV ONE (12:30)
--- NOTE | 2020-01-27 12:33 | RAD ---
EXAM: ABDOMEN COMPLETE, CHEST AP ONLY INDICATION: Post line placement. Fever, cough. TECHNIQUE: Single view COMPARISON: None FINDINGS: No central lines or vascular support devices are apparent. The heart size is normal. The great vessels appear unremarkable. There is no hilar or mediastinal mass. The lungs are clear. There is no pleural effusion or pneumothorax. There are no significant osseous abnormalities. IMPRESSION: No active cardiopulmonary disease. No central lines are evident. EXAM: Abdominal Ultrasound Complete INDICATION: Jaundice. Elevated LFTs. TECHNIQUE: Real-time ultrasound of the abdomen was performed with permanent freeze-frame documentation. COMPARISON: None FINDINGS: BILIARY:?Gallbladder has a thickened wall up to 4.8 mm. No reported sonographic Birch's sign.. No biliary ductal dilatation. The common bile duct measures cm. LIVER:?Liver is enlarged at 223.9 cm in length and shows generalized increased echogenicity compatible with diffuse fatty infiltration. In hepatic segment 7 is an 8.8 x 11.2 x 7.6 cm hypoechoic mass with internal echogenic septations. ? SPLEEN: Spleen is normal in size measuring 13.7 cm in length. ? RIGHT KIDNEY: 13.1 x 5.2 x 7.0 cm. Unremarkable. ? LEFT KIDNEY: 13.9 x 5.2 x 5.1 cm. ?Unremarkable. ? PANCREAS:?Not well visualized. It is obscured by bowel gas. ? RETROPERITONEAL: Visualized abdominal aorta and IVC are unremarkable. OTHER: No significant free fluid. IMPRESSION: 1. Sonographic findings compatible with acute cholecystitis. 2. Hepatic steatosis and hepatomegaly, compatible with steatohepatitis in the appropriate clinical context. 3. An incompletely characterized 11 cm right hepatic lobe mass is recommended for liver mass protocol CT or MRI when clinically feasible in further evaluation. Electronically signed by: Jeff Magana MD (01/27/2020 12:30 PM) [id number]
--- NOTE | 2020-01-27 13:13 | PDOC ---
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 History of Present Illness History of Present Illness [id number] Patient seen and examined He is currently getting a central line I assisted with central line placement He is requiring very high doses of Precedex Ativan and Haldol I added and when necessary Zyprexa as well Called his and spoke with her and explained his prognosis is poor long-term Discussed with RN Chart reviewed Vitals/I&O Vitals/I&O: Vital Signs Date Time Temp Pulse Resp B/P (MAP) Pulse Ox O2 Delivery O2 Flow Rate FiO2 01/27/20 11:00 101.5 96 36 83/52 (62) 97 Nasal Cannula 2.0 101.5 I & O 01/26/20 01/26/20 01/27/20 15:00 23:00 07:00 Intake Total 1000 ml 2695 ml 3103.2 ml Output Total 0 ml 25 ml 260 ml Balance 1000 ml 2670 ml 2843.2 ml Physical Exam Physical Exam: GEN thrashing around in the bed HEENT: Pupils equally round. + icterus. Oral cavity pink and dry. Dentures in place. NECK: Supple. LUNGS: Clear to auscultation. CARDIAC: S1 and S2 regular. ABDOMEN: Nondistended, soft. No guarding or rebound. Bowel sounds present. hillman concentrated urine EXTREMITIES: No gross edema or cyanosis. SKIN: Warm to touch. No signs of rash. Jaundice. NEUROLOGIC: agitated,restless, arousable General: severe distress Heart: No murmurs Lungs: Crackles Extremities: No clubbing Skin: Other (jaundiced) Labs Labs: Laboratory Tests Test 01/26/20 14:45 01/26/20 20:35 01/27/20 04:00 Sodium Level 129 mmol/L (136-145) 128 mmol/L (136-145) 131 mmol/L (136-145) Potassium Level 2.5 mmol/L (3.5-5.1) 2.9 mmol/L (3.5-5.1) 3.1 mmol/L (3.5-5.1) Chloride Level 92 mmol/L (98-107) 93 mmol/L (98-107) 96 mmol/L (98-107) Carbon Dioxide Level 20 mmol/L (21-32) 17 mmol/L (21-32) 15 mmol/L (21-32) Anion Gap 17 (6-14) 18 (6-14) 20 (6-14) Blood Urea Nitrogen 105 mg/dL (8-26) 106 mg/dL (8-26) 107 mg/dL (8-26) Creatinine 5.2 mg/dL (0.7-1.3) 5.2 mg/dL (0.7-1.3) 5.1 mg/dL (0.7-1.3) Estimated GFR (Cockcroft-Gault) 11.8 11.8 12.1 Glucose Level 101 mg/dL (70-99) 89 mg/dL (70-99) 100 mg/dL (70-99) Calcium Level 6.7 mg/dL (8.5-10.1) 6.4 mg/dL (8.5-10.1) 6.6 mg/dL (8.5-10.1) Magnesium Level 2.2 mg/dL (1.8-2.4) 2.1 mg/dL (1.8-2.4) Lactic Acid Level 1.4 mmol/L (0.4-2.0) White Blood Count 18.8 x10^3/uL (4.0-11.0) Red Blood Count 3.88 x10^6/uL (4.30-5.70) Hemoglobin 13.2 g/dL (13.0-17.5) Hematocrit 38.4 % (39.0-53.0) Mean Corpuscular Volume 99 fL (79-100) Mean Corpuscular Hemoglobin 34 pg (25-35) Mean Corpuscular Hemoglobin Concent 34 g/dL (31-37) Red Cell Distribution Width 15.2 % (11.5-14.5) Platelet Count 33 x10^3/uL (140-400) Neutrophils (%) (Auto) 92 % (31-73) Lymphocytes (%) (Auto) 1 % (24-48) Monocytes (%) (Auto) 4 % (0-9) Eosinophils (%) (Auto) 2 % (0-3) Basophils (%) (Auto) 0 % (0-3) Neutrophils # (Auto) 17.3 x10^3/uL (1.8-7.7) Lymphocytes # (Auto) 0.3 x10^3/uL (1.0-4.8) Monocytes # (Auto) 0.8 x10^3/uL (0.0-1.1) Eosinophils # (Auto) 0.4 x10^3/uL (0.0-0.7) Basophils # (Auto) 0.0 x10^3/uL (0.0-0.2) BUN/Creatinine Ratio 21 (6-20) Total Bilirubin 11.6 mg/dL (0.2-1.0) Aspartate Amino Transf (AST/SGOT) 409 U/L (15-37) Alanine Aminotransferase (ALT/SGPT) 219 U/L (16-63) Alkaline Phosphatase 228 U/L (46-116) Creatine Kinase 76 U/L (39-308) Total Protein 4.7 g/dL (6.4-8.2) Albumin 1.6 g/dL (3.4-5.0) Albumin/Globulin Ratio 0.5 (1.0-1.7) Review of Systems Review of Systems: Unable to obtain Assessment and Plan Assessmemt and Plan Problems Medical Problems: (1) Acute hepatitis Status: Acute (2) Acute renal failure Status: Acute (3) Hypokalemia Status: Acute 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 Plan ICU monitoring IV antibiotics I spoke with infectious disease doctor regarding considering coronavirus testing, however his chest x-ray probably won't give him criteria for testing ([facility] is very strict with her guidelines) Monitor labs When necessary Ativan Continue Precedex When necessary Zyprexa Continue Haldol Home meds if possible He is auto anticoagulated so won't need anymore DVT prophylaxis Long-term prognosis extremely guarded I think his life expectancy is measured in months and not years He is critically ill Total time 42 minutes Comment Review of Relevant I have reviewed the following items minda (where applicable) has been applied. Medications: Current Medications Medications (Trade) Dose Ordered Sig/Akhil Route PRN Reason Start Time Stop Time Status Last Admin Dose Admin Vancomycin HCl (Vanco Per Pharmacy) 1 each PRN DAILY PRN MC SEE COMMENTS 01/26/20 13:30 01/26/20 16:14 DC 01/26/20 14:13 Piperacillin Sod/ Tazobactam Sod 2.25 gm/Sodium Chloride 50 ml @ 100 mls/hr Q6HRS IV 01/26/20 14:00 01/27/20 09:45 DC 01/27/20 06:05 Vancomycin HCl 1.75 gm/Sodium Chloride 500 ml @ 250 mls/hr ONCE ONCE IV 01/26/20 14:30 01/26/20 16:29 DC 01/26/20 13:41 Potassium Chloride/Water 100 ml @ 100 mls/hr Q1H IV 01/26/20 15:45 01/26/20 19:44 DC 01/26/20 18:23 Albumin Human 500 ml @ 125 mls/hr 1X ONCE IV 01/26/20 15:45 01/26/20 19:44 DC 01/26/20 16:01 Albumin Human 500 ml @ 25 mls/hr Q20H IV 01/26/20 15:45 01/27/20 07:49 DC 01/26/20 16:04 Lorazepam (Ativan Inj) 2 mg PRN Q1HR PRN IV For CIWA 8-14 01/26/20 17:45 01/27/20 12:26 Lorazepam (Ativan Inj) 4 mg PRN Q1HR PRN IV For CIWA 15 or greater 01/26/20 17:45 01/27/20 12:28 Haloperidol Lactate (Haldol Inj) 5 mg PRN Q4HRS PRN IVP Hallucinatns,Confusn,Delirium 01/26/20 17:45 01/27/20 12:25 Diphenhydramine HCl (Benadryl) 25 mg PRN Q15MIN PRN IVP EPS symptoms 2'Haldol admin 01/26/20 17:45 01/27/20 12:25 Dexmedetomidine HCl 400 mcg/ Sodium Chloride 100 ml @ 0 mls/hr CONT PRN IV PER PROTOCOL 01/26/20 18:45 01/27/20 09:50 Potassium Chloride/Sodium Chloride 1,000 ml @ 150 mls/hr Q6H40M IV 01/26/20 21:30 01/27/20 12:35 Potassium Chloride/Water 100 ml @ 100 mls/hr Q1H IV 01/26/20 22:00 01/27/20 01:59 DC 01/27/20 00:53 Norepinephrine Bitartrate 8 mg/ Dextrose 258 ml @ 14.416 mls/ hr CONT PRN IV PER PROTOCOL 01/26/20 22:00 01/26/20 22:58 Sodium Chloride 500 ml @ 500 mls/hr 1X ONCE IV 01/26/20 22:00 01/26/20 23:00 DC 01/26/20 21:57 Albumin Human 250 ml @ 25 mls/hr Q10H IV 01/27/20 08:00 01/27/20 07:59 Meropenem 500 mg/ Sodium Chloride 50 ml @ 100 mls/hr Q12HR IV 01/27/20 12:15 01/27/20 12:29 Potassium Chloride/Water 100 ml @ 100 mls/hr 1X ONCE IV 01/27/20 12:30 01/27/20 13:29 01/27/20 12:36 DEVIN PUGA III DO Jan 27, 2020 13:13
--- NOTE | 2020-01-27 13:36 | RAD ---
01/27/2020 11:29 AM Procedure: Ultrasound-guided placement of right internal jugular central venous catheter, and temporary dialysis catheter. Clinical Indication: Discussion: The risks and benefits of the procedure were discussed the patient and/or their client account representative. Informed consent was obtained. A timeout procedure was performed. All elements of maximal sterile barrier technique including the use of a cap, mask, sterile gown, sterile gloves, large sterile sheet, appropriate hand hygiene, and 2% chlorhexidine for cutaneous antisepsis (or acceptable alternative antiseptic per current guidelines) were followed for this procedure. The patient was prepped and draped in the usual sterile fashion. Ultrasound interrogation of the right neck revealed patency and compressibility of the right internal jugular vein. A 21-gauge micropuncture was then used to gain access to this vein under ultrasound guidance. A hard copy ultrasound image was recorded. A guidewire was advanced centrally. 5 Kazakh sheath was placed. Over a wire following dilatation, a temporary dialysis catheter was advanced centrally. Catheter was found to flush and aspirate normally. Follow-up chest radiograph demonstrates tip at the cavoatrial junction. Catheter secured in place and a sterile dressing was applied. No immediate complications were identified. A new 21-gauge micropuncture was then used to gain access the right IJ vein, slightly more cephalad, in an identical fashion. A hard copy ultrasound image was recorded. A guidewire was advanced centrally. 5 Kazakh sheath was placed. Over a wire following dilatation, a a triple-lumen central venous catheter was advanced centrally. Catheter was found to flush and aspirate normally. Follow-up chest radiograph demonstrates tip at the cavoatrial junction. Catheter secured in place and a sterile dressing was applied. No immediate complications were identified. Impression: Successful ultrasound-guided placement of right internal jugular triple-lumen central venous catheter and a temporary dialysis catheter.
--- NOTE | 2020-01-27 13:49 | RAD ---
CHEST AP ONLY Clinical indications: Placement of central lines. COMPARISON: January 26, 2020. Findings: Right IJ dialysis catheter is in place and tip is seen within the right atrium. Another right IJ central line has been placed and the tip is seen within the right atrium. No pneumothorax or pleural effusion is seen. There is a new finding of moderate bilateral perihilar pulmonary edema. The heart size, pulmonary vasculature, mediastinum and both lolita are otherwise unremarkable. Impression: Placement of central lines without pneumothorax. New finding of moderate bilateral pulmonary edema. Electronically signed by: Sterling Yu MD (01/27/2020 1:46 PM) [facility] [place]
[2020-01-27] MEDS ORDERED: PIPERACILLIN/TAZOBACTAM 2.25 GM in IV NORMAL SALINE 50ML 50 ML IV SCH (14:00)
[2020-01-27] MEDS: NOREPINEPHRINE VIAL 8 MG in IV DEXTROSE 5% 250 ML IV PRN (14:35)
[2020-01-27] MEDS ORDERED: IV NORMAL SALINE 1000ML BAG 1,000 ML IV PRN ×2 (15:05)
[2020-01-27] MEDS ORDERED: DIALYSIS PATIENT. MC PRN ×2 (15:15)
[2020-01-27] MEDS ORDERED: 0.9 % SODIUM CHLORIDE 10 ML DISP.SYRIN. IV PRN ×2 (15:15)
[2020-01-27] MEDS ORDERED: ALBUMIN HUMAN 25% 200 ML IV PRN (15:15)
[2020-01-28] VITALS (28 sets, daily range): BP systolic 82–130; BP diastolic 53–82
[2020-01-28] MEDS: DEXMEDETOMIDINE 400 MCG in IV NORMAL SALINE 100ML 96 ML IV PRN ×8 (00:31→23:51)
[2020-01-28 05:11] LABS: BASO % 0 % (0-3); EOS # 0.1 x10^3/uL (0.0-0.7); EOS % 0 % (0-3); HEMATOCRIT 35.7 % (39.0-53.0); HEMOGLOBIN 12.6 g/dL (13.0-17.5); LYMPH # 0.3 x10^3/uL (1.0-4.8); LYMPH % 2 % (24-48); MEAN CORPUSCULAR HEMOGLOBIN 34 pg (25-35); MEAN CORPUSCULAR HGB CONC 35 g/dL (31-37); MEAN CORPUSCULAR VOLUME 97 fL (79-100); MONO # 0.9 x10^3/uL (0.0-1.1); MONO % 5 % (0-9); NEUT # 16.7 x10^3/uL (1.8-7.7); NEUT % 93 % (31-73); RED BLOOD COUNT 3.68 x10^6/uL (4.30-5.70); RED CELL DISTRIBUTION WIDTH 15.7 % (11.5-14.5); WHITE BLOOD COUNT 18.1 x10^3/uL (4.0-11.0)
[2020-01-28 05:26] LABS: PROTHROMBIN TIME PATIENT 44.1 SEC (11.7-14.0)
[2020-01-28 05:31] LABS: PLATELET COUNT 22 x10^3/uL (140-400)
[2020-01-28 05:37] LABS: ALBUMIN 1.5 g/dL (3.4-5.0); CALCIUM 6.8 mg/dL (8.5-10.1); CREATININE 3.7 mg/dL (0.7-1.3); GFR 17.5; POTASSIUM 3.1 mmol/L (3.5-5.1); TOTAL BILIRUBIN 13.3 mg/dL (0.2-1.0)
[2020-01-28 06:10] LABS: ALBUMIN/GLOBULIN RATIO 0.5 (1.0-1.7); TOTAL PROTEIN 4.3 g/dL (6.4-8.2)
--- NOTE | 2020-01-28 06:55 | NUR ---
Dr. Zurita notified of critical lab results at 0650. No new orders received. Will monitor.
[2020-01-28] MEDS: THIAMINE 100 MG TABLET. PO SCH (09:00)
--- NOTE | 2020-01-28 09:05 | PDOC ---
Infectious Disease Note Subjective: Subjective Pt is sedated fever pattern improved Vital Signs: Vital Signs Vital Signs Date Time Temp Pulse Resp B/P (MAP) Pulse Ox O2 Delivery O2 Flow Rate FiO2 01/28/20 07:00 75 23 92/67 (75) 94 Room Air 01/28/20 05:00 2.0 01/28/20 04:00 98.5 98.5 Physical Exam: PHYSICAL EXAM GEN sedated HEENT: Pupils equally round. + icterus. Oral cavity pink and dry. Dentures in place. NECK: Supple. RT HDC site looks ok LUNGS: clear anteriorly CARDIAC: S1 and S2 regular. ABDOMEN: Nondistended, soft. No guarding or rebound. Bowel sounds present. hillman concentrated urine EXTREMITIES: No gross edema or cyanosis. SKIN: Warm to touch. No signs of rash. Jaundice. NEUROLOGIC:sedated Medications: Inpatient Meds: Current Medications Medications (Trade) Dose Ordered Sig/Akhil Start Time Stop Time Status Last Admin Dose Admin Albumin Human 200 ml @ 200 mls/hr 1X PRN PRN 01/27/20 15:15 01/27/20 21:14 DC Albuterol/ Ipratropium (Duoneb) 3 ml 1X ONCE 01/26/20 08:45 01/26/20 08:46 DC 01/26/20 08:49 3 ML Atropine Sulfate (ATROPINE 0.5mg SYRINGE) 0.5 mg PRN Q5MIN PRN 01/26/20 18:45 Clonidine HCl (Catapres) 0.1 mg PRN Q1HR PRN 01/26/20 17:45 Dexmedetomidine HCl 400 mcg/ Sodium Chloride 100 ml @ 0 mls/hr CONT PRN 01/26/20 18:45 01/28/20 07:47 18.6 MLS/HR Diphenhydramine HCl (Benadryl) 25 mg PRN Q15MIN PRN 01/26/20 17:45 01/27/20 12:25 25 MG Famotidine (Pepcid Vial) 20 mg 1X ONCE 01/26/20 08:45 01/26/20 08:46 DC 01/26/20 09:05 20 MG Haloperidol Lactate (Haldol Inj) 5 mg PRN Q4HRS PRN 01/26/20 17:45 01/27/20 12:25 5 MG Info (PHARMACY MONITORING -- do not chart) 1 each PRN DAILY PRN 01/27/20 15:15 Lidocaine HCl (Buffered Lidocaine 1%) 3 ml STK-MED ONCE 01/27/20 11:08 01/27/20 11:08 DC Lorazepam (Ativan Inj) 4 mg PRN Q1HR PRN 01/26/20 17:45 01/28/20 08:18 4 MG Lorazepam (Ativan) 1 mg PRN Q6HRS PRN 01/26/20 15:15 UNV Meropenem 500 mg/ Sodium Chloride 50 ml @ 100 mls/hr Q12HR 01/27/20 12:15 01/27/20 20:46 100 MLS/HR Norepinephrine Bitartrate 8 mg/ Dextrose 258 ml @ 14.416 mls/ hr CONT PRN 01/26/20 22:00 01/27/20 14:35 14.416 MLS/HR Ondansetron HCl (Zofran) 4 mg PRN Q8HRS PRN 01/26/20 10:15 01/27/20 10:14 DC Pantoprazole Sodium (Protonix) 40 mg DAILYAC 01/27/20 11:00 Piperacillin Sod/ Tazobactam Sod (Zosyn Per Pharmacy) 1 each PRN DAILY PRN 01/26/20 13:30 01/27/20 09:46 DC Piperacillin Sod/ Tazobactam Sod 2.25 gm/Sodium Chloride 50 ml @ 100 mls/hr Q8HRS 01/27/20 14:00 01/27/20 11:58 DC Potassium Chloride 20 meq/ Sodium Chloride 1,010 ml @ 150 mls/hr Q6H44M 01/26/20 10:45 01/26/20 21:03 DC 01/26/20 12:46 150 MLS/HR Potassium Chloride/Sodium Chloride 1,000 ml @ 150 mls/hr Q6H40M 01/26/20 21:30 01/28/20 04:44 150 MLS/HR Potassium Chloride/Water 100 ml @ 100 mls/hr 1X ONCE 01/27/20 12:30 01/27/20 13:29 DC 01/27/20 12:36 100 MLS/HR Potassium Chloride (Klor-Con) 40 meq 1X ONCE 01/26/20 10:15 3/15/20 10:17 DC 01/26/20 10:27 40 MEQ Sodium Chloride 1,000 ml @ 400 mls/hr Q2H30M PRN 01/27/20 15:05 01/28/20 03:04 DC Sodium Chloride (Normal Saline Flush) 10 ml 1X PRN PRN 01/27/20 15:15 01/28/20 15:14 Thiamine Mononitrate (Vitamin B-1) 100 mg DAILY 01/28/20 09:00 Vancomycin HCl (Vanco Per Pharmacy) 1 each PRN DAILY PRN 01/26/20 13:30 01/26/20 16:14 DC 01/26/20 14:13 1 EACH Vancomycin HCl (Vancomycin Random Level) 1 each 1X ONCE 01/28/20 14:00 01/26/20 16:16 DC Vancomycin HCl 1.75 gm/Sodium Chloride 500 ml @ 250 mls/hr ONCE ONCE 01/26/20 14:30 01/26/20 16:29 DC 01/26/20 13:41 250 MLS/HR Labs: Lab Laboratory Tests Test 01/27/20 14:45 01/28/20 05:00 Tumor Marker Alpha Fetoprotein 1.2 ng/mL (0.0-8.3) White Blood Count 18.1 x10^3/uL (4.0-11.0) Red Blood Count 3.68 x10^6/uL (4.30-5.70) Hemoglobin 12.6 g/dL (13.0-17.5) Hematocrit 35.7 % (39.0-53.0) Mean Corpuscular Volume 97 fL (79-100) Mean Corpuscular Hemoglobin 34 pg (25-35) Mean Corpuscular Hemoglobin Concent 35 g/dL (31-37) Red Cell Distribution Width 15.7 % (11.5-14.5) Platelet Count 22 x10^3/uL (140-400) Neutrophils (%) (Auto) 93 % (31-73) Lymphocytes (%) (Auto) 2 % (24-48) Monocytes (%) (Auto) 5 % (0-9) Eosinophils (%) (Auto) 0 % (0-3) Basophils (%) (Auto) 0 % (0-3) Neutrophils # (Auto) 16.7 x10^3/uL (1.8-7.7) Lymphocytes # (Auto) 0.3 x10^3/uL (1.0-4.8) Monocytes # (Auto) 0.9 x10^3/uL (0.0-1.1) Eosinophils # (Auto) 0.1 x10^3/uL (0.0-0.7) Basophils # (Auto) 0.0 x10^3/uL (0.0-0.2) Prothrombin Time 44.1 SEC (11.7-14.0) Prothromb Time International Ratio 4.6 (0.8-1.1) Sodium Level 141 mmol/L (136-145) Potassium Level 3.1 mmol/L (3.5-5.1) Chloride Level 104 mmol/L (98-107) Carbon Dioxide Level 23 mmol/L (21-32) Anion Gap 14 (6-14) Blood Urea Nitrogen 65 mg/dL (8-26) Creatinine 3.7 mg/dL (0.7-1.3) Estimated GFR (Cockcroft-Gault) 17.5 BUN/Creatinine Ratio 18 (6-20) Glucose Level 92 mg/dL (70-99) Calcium Level 6.8 mg/dL (8.5-10.1) Total Bilirubin 13.3 mg/dL (0.2-1.0) Aspartate Amino Transf (AST/SGOT) 362 U/L (15-37) Alanine Aminotransferase (ALT/SGPT) 223 U/L (16-63) Alkaline Phosphatase 247 U/L (46-116) Total Protein 4.3 g/dL (6.4-8.2) Albumin 1.5 g/dL (3.4-5.0) Albumin/Globulin Ratio 0.5 (1.0-1.7) Objective: Assessment: Fever likely from etoh withdrawl,improving Heavy ETOH use ETOH withdrawl Questionable sepsis. Leukocytosis. Acute kidney injury with electrolyte imbalances. Acute hepatic failure.Hyperbilirubinemia Likely hepatorenal syndrome Marijhuana use Tobaccoism. Thrombocytopenia Plan: Plan of Care Continue Merrem ,was on zosyn s/p vancomycin once UA pending F/U BC on HDC GI and Renal are following Monitor labs values CPK wnl Maintain aspiration precautions D/w nursing Critically ill MONICA BOSTON MD Jan 28, 2020 09:05
[2020-01-28] MEDS: MEROPENEM 500 MG in IV NORMAL SALINE 50ML 50 ML IV SCH ×2 (09:26→20:00)
[2020-01-28] MEDS: ALBUMIN HUMAN 5% 250 ML IV SCH ×2 (09:31→17:30)
[2020-01-28] MEDS: PANTOPRAZOLE IV PUSH 40 MG VIAL. IVP SCH (09:34)
[2020-01-28] MEDS: NOREPINEPHRINE VIAL 8 MG in IV DEXTROSE 5% 250 ML IV PRN (09:35)
--- NOTE | 2020-01-28 10:07 | PDOC ---
Objective: Objective: Reviewed chart. Vital Signs: Vital Signs Date Time Temp Pulse Resp B/P (MAP) Pulse Ox O2 Delivery O2 Flow Rate FiO2 01/28/20 07:00 75 23 92/67 (75) 94 Room Air 01/28/20 05:00 2.0 01/28/20 04:00 98.5 98.5 Labs: Laboratory Tests Test 01/27/20 14:45 01/28/20 05:00 Tumor Marker Alpha Fetoprotein 1.2 ng/mL White Blood Count 18.1 x10^3/uL Red Blood Count 3.68 x10^6/uL Hemoglobin 12.6 g/dL Hematocrit 35.7 % Mean Corpuscular Volume 97 fL Mean Corpuscular Hemoglobin 34 pg Mean Corpuscular Hemoglobin Concent 35 g/dL Red Cell Distribution Width 15.7 % Platelet Count 22 x10^3/uL Neutrophils (%) (Auto) 93 % Lymphocytes (%) (Auto) 2 % Monocytes (%) (Auto) 5 % Eosinophils (%) (Auto) 0 % Basophils (%) (Auto) 0 % Neutrophils # (Auto) 16.7 x10^3/uL Lymphocytes # (Auto) 0.3 x10^3/uL Monocytes # (Auto) 0.9 x10^3/uL Eosinophils # (Auto) 0.1 x10^3/uL Basophils # (Auto) 0.0 x10^3/uL Prothrombin Time 44.1 SEC Prothromb Time International Ratio 4.6 Sodium Level 141 mmol/L Potassium Level 3.1 mmol/L Chloride Level 104 mmol/L Carbon Dioxide Level 23 mmol/L Anion Gap 14 Blood Urea Nitrogen 65 mg/dL Creatinine 3.7 mg/dL Estimated GFR (Cockcroft-Gault) 17.5 BUN/Creatinine Ratio 18 Glucose Level 92 mg/dL Calcium Level 6.8 mg/dL Total Bilirubin 13.3 mg/dL Aspartate Amino Transf (AST/SGOT) 362 U/L Alanine Aminotransferase (ALT/SGPT) 223 U/L Alkaline Phosphatase 247 U/L Total Protein 4.3 g/dL Albumin 1.5 g/dL Albumin/Globulin Ratio 0.5 BLOOD CULTURE Preliminary NO GROWTH AFTER 1 DAY Imaging: Abd US IMPRESSION: 1. Sonographic findings compatible with acute cholecystitis. 2. Hepatic steatosis and hepatomegaly, compatible with steatohepatitis in the appropriate clinical context. 3. An incompletely characterized 11 cm right hepatic lobe mass is recommended for liver mass protocol CT or MRI when clinically feasible in further evaluation. CXR Impression: Placement of central lines without pneumothorax. New finding of moderate bilateral pulmonary edema. PE: GEN: ill LUNGS: midlly tachypneic HEART: RRR ABD: soft NEURO/PSYCH: sedated A/P: Alcohol abuse/withdrawal, ?cough/hematemesis prior to admission Fever, leukocytosis, JHONY (better) Elevated LFTs (worse bili and Alk Phos), coagulopathy (worse - INR 4.6), thrombocytopenia (worse - plt 22) Heaptic steatosis, hepatomegaly, right hepatic lobe mass - normal AFP, neg Hep panel -- Dr. Hewitt suggests surgery and oncology opinions. Will also check MRI liver protocol as able. Give FFP. Continue IV PPI. Check ammonia. D/w Dr. De La Torre later - family wants Hospice? Hemodynamically unstable?: Yes Is patient in severe pain?: No Is NPO status required?: Yes NBA BACON Jan 28, 2020 10:07
--- NOTE | 2020-01-28 11:40 | PDOC ---
Renal-Progress Notes Subjective Notes Notes CONFUSED History of Present Illness Hx of present illness STABLE Vitals Vitals Vital Signs Date Time Temp Pulse Resp B/P (MAP) Pulse Ox O2 Delivery O2 Flow Rate FiO2 01/28/20 11:00 75 24 94/60 (71) 95 Nasal Cannula 01/28/20 08:00 2.0 01/28/20 08:00 98.8 98.8 Weight Weight [ ] I.O. Intake and Output Intake and Output 01/28/20 07:00 Intake Total 4585 ml Output Total 415 ml Balance 4170 ml IV Total 2710 ml Other 1875 ml Output Urine Total 415 ml Labs Labs Laboratory Tests Test 01/27/20 14:45 01/28/20 05:00 Tumor Marker Alpha Fetoprotein 1.2 ng/mL (0.0-8.3) White Blood Count 18.1 x10^3/uL (4.0-11.0) Red Blood Count 3.68 x10^6/uL (4.30-5.70) Hemoglobin 12.6 g/dL (13.0-17.5) Hematocrit 35.7 % (39.0-53.0) Mean Corpuscular Volume 97 fL (79-100) Mean Corpuscular Hemoglobin 34 pg (25-35) Mean Corpuscular Hemoglobin Concent 35 g/dL (31-37) Red Cell Distribution Width 15.7 % (11.5-14.5) Platelet Count 22 x10^3/uL (140-400) Neutrophils (%) (Auto) 93 % (31-73) Lymphocytes (%) (Auto) 2 % (24-48) Monocytes (%) (Auto) 5 % (0-9) Eosinophils (%) (Auto) 0 % (0-3) Basophils (%) (Auto) 0 % (0-3) Neutrophils # (Auto) 16.7 x10^3/uL (1.8-7.7) Lymphocytes # (Auto) 0.3 x10^3/uL (1.0-4.8) Monocytes # (Auto) 0.9 x10^3/uL (0.0-1.1) Eosinophils # (Auto) 0.1 x10^3/uL (0.0-0.7) Basophils # (Auto) 0.0 x10^3/uL (0.0-0.2) Prothrombin Time 44.1 SEC (11.7-14.0) Prothromb Time International Ratio 4.6 (0.8-1.1) Sodium Level 141 mmol/L (136-145) Potassium Level 3.1 mmol/L (3.5-5.1) Chloride Level 104 mmol/L (98-107) Carbon Dioxide Level 23 mmol/L (21-32) Anion Gap 14 (6-14) Blood Urea Nitrogen 65 mg/dL (8-26) Creatinine 3.7 mg/dL (0.7-1.3) Estimated GFR (Cockcroft-Gault) 17.5 BUN/Creatinine Ratio 18 (6-20) Glucose Level 92 mg/dL (70-99) Calcium Level 6.8 mg/dL (8.5-10.1) Total Bilirubin 13.3 mg/dL (0.2-1.0) Aspartate Amino Transf (AST/SGOT) 362 U/L (15-37) Alanine Aminotransferase (ALT/SGPT) 223 U/L (16-63) Alkaline Phosphatase 247 U/L (46-116) Total Protein 4.3 g/dL (6.4-8.2) Albumin 1.5 g/dL (3.4-5.0) Albumin/Globulin Ratio 0.5 (1.0-1.7) Micro Micro Microbiology 01/26/20 Blood Culture - Preliminary, Resulted NO GROWTH AFTER 1 DAY Review of Systems Constitutional: yes: weakness Ears/Nose/Throat: Yes: no symptom reported Eyes: Yes: no symptom reported Pulmonary: Yes no symptom reported Cardiovascular: Yes no symptom reported Gastrointestional: Yes: no symptom reported Genitourinary: Yes: no symptom reported Musculoskeletal: Yes: no symptom reported Skin: Yes no symptom reported Psychiatric/Neurological: Yes: no symptom reported Endocrine: Yes: no symptom reported Physical Exam General Appearance: no apparent distress Skin: warm Respiratory: decreased breath sounds Heart: S1S2 Abdomen: soft Genitourinary: bladder flat Extremities: pulses present Neurology: alert Assessment Assessment IMP JHONY HYPERKALEMIA ETOH ABUSE HX ETOH RELATED HEPATITIS ? LIVER MASS LEUCOCYTOSIS THROMBOCYTOPENIA HEPATORENAL HYPOKALEMIA MET ACIDOSIS PLAN TEMP HD LINE HD T[place]ORROW IF NEEDED REPLACE K SUPPORTIVE CARE FAMILY DISCUSSING HOSPICE BELA LOPEZ MD Jan 28, 2020 11:40
[2020-01-28] MEDS: POTASSIUM CHLORIDE 10MEQ 100 ML IV SCH ×2 (13:01→14:04)
--- NOTE | 2020-01-28 13:34 | PDOC ---
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 History of Present Illness History of Present Illness [id number] Patient seen and examined Had a lengthy discussion with the family They now want to go with hospice and comfort care I called case management Chart reviewed Discussed with RN [phone] Patient seen and examined He is currently getting a central line I assisted with central line placement He is requiring very high doses of Precedex Ativan and Haldol I added and when necessary Zyprexa as well Called his and spoke with her and explained his prognosis is poor long-term Discussed with RN Chart reviewed Vitals/I&O Vitals/I&O: Vital Signs Date Time Temp Pulse Resp B/P (MAP) Pulse Ox O2 Delivery O2 Flow Rate FiO2 01/28/20 11:00 75 24 94/60 (71) 95 Nasal Cannula 01/28/20 08:00 2.0 01/28/20 08:00 98.8 98.8 I & O 01/27/20 01/27/20 01/28/20 15:00 23:00 07:00 Intake Total 1875 ml 2710 ml Output Total 90 ml 185 ml 140 ml Balance -90 ml 1690 ml 2570 ml Physical Exam Physical Exam: HEENT: Pupils equally round. + icterus. Oral cavity pink and dry. Dentures in place. NECK: Supple. RT HDC site looks ok LUNGS: clear anteriorly CARDIAC: S1 and S2 regular. ABDOMEN: Nondistended, soft. No guarding or rebound. Bowel sounds present. hillman concentrated urine EXTREMITIES: No gross edema or cyanosis. SKIN: Warm to touch. No signs of rash. Jaundice. NEUROLOGIC unresponsive General: severe distress Heart: No murmurs Lungs: Crackles Extremities: No clubbing Skin: Other (jaundiced) Labs Labs: Laboratory Tests Test 01/27/20 14:45 01/28/20 05:00 01/28/20 13:00 Tumor Marker Alpha Fetoprotein 1.2 ng/mL (0.0-8.3) White Blood Count 18.1 x10^3/uL (4.0-11.0) Red Blood Count 3.68 x10^6/uL (4.30-5.70) Hemoglobin 12.6 g/dL (13.0-17.5) Hematocrit 35.7 % (39.0-53.0) Mean Corpuscular Volume 97 fL (79-100) Mean Corpuscular Hemoglobin 34 pg (25-35) Mean Corpuscular Hemoglobin Concent 35 g/dL (31-37) Red Cell Distribution Width 15.7 % (11.5-14.5) Platelet Count 22 x10^3/uL (140-400) Neutrophils (%) (Auto) 93 % (31-73) Lymphocytes (%) (Auto) 2 % (24-48) Monocytes (%) (Auto) 5 % (0-9) Eosinophils (%) (Auto) 0 % (0-3) Basophils (%) (Auto) 0 % (0-3) Neutrophils # (Auto) 16.7 x10^3/uL (1.8-7.7) Lymphocytes # (Auto) 0.3 x10^3/uL (1.0-4.8) Monocytes # (Auto) 0.9 x10^3/uL (0.0-1.1) Eosinophils # (Auto) 0.1 x10^3/uL (0.0-0.7) Basophils # (Auto) 0.0 x10^3/uL (0.0-0.2) Prothrombin Time 44.1 SEC (11.7-14.0) Prothromb Time International Ratio 4.6 (0.8-1.1) Sodium Level 141 mmol/L (136-145) Potassium Level 3.1 mmol/L (3.5-5.1) Chloride Level 104 mmol/L (98-107) Carbon Dioxide Level 23 mmol/L (21-32) Anion Gap 14 (6-14) Blood Urea Nitrogen 65 mg/dL (8-26) Creatinine 3.7 mg/dL (0.7-1.3) Estimated GFR (Cockcroft-Gault) 17.5 BUN/Creatinine Ratio 18 (6-20) Glucose Level 92 mg/dL (70-99) Calcium Level 6.8 mg/dL (8.5-10.1) Total Bilirubin 13.3 mg/dL (0.2-1.0) Aspartate Amino Transf (AST/SGOT) 362 U/L (15-37) Alanine Aminotransferase (ALT/SGPT) 223 U/L (16-63) Alkaline Phosphatase 247 U/L (46-116) Total Protein 4.3 g/dL (6.4-8.2) Albumin 1.5 g/dL (3.4-5.0) Albumin/Globulin Ratio 0.5 (1.0-1.7) Ammonia < 10 mcmol/L (11-34) Assessment and Plan Assessmemt and Plan Problems Medical Problems: (1) Acute hepatitis Status: Acute (2) Acute renal failure Status: Acute (3) Hypokalemia Status: Acute 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 Plan Comfort Care Trying to arrange hospice When necessary Ativan Trying to wean off of the Continue Precedex When necessary Zyprexa Continue Haldol Home meds if possible He is auto anticoagulated so won't need anymore DVT prophylaxis Long-term prognosis extremely guarded I think his life expectancy is measured in months and not years He is critically ill Total time39 minutes Comment Review of Relevant I have reviewed the following items minda (where applicable) has been applied. Medications: Current Medications Medications (Trade) Dose Ordered Sig/Akhil Route PRN Reason Start Time Stop Time Status Last Admin Dose Admin Pantoprazole Sodium (PROTONIX VIAL for IV PUSH) 40 mg DAILYAC IVP 01/28/20 10:00 01/28/20 09:34 Potassium Chloride/Water 100 ml @ 100 mls/hr Q1H IV 01/28/20 12:00 01/28/20 13:59 01/28/20 13:01 Hemodynamically unstable?: Yes Is patient in severe pain?: No Is NPO status required?: Yes DEVIN PUGA III DO Jan 28, 2020 13:34
[2020-01-28] MEDS ORDERED: VANCOMYCIN RANDOM LEVEL. MC ONE (14:00)
[2020-01-28] MEDS: MORPHINE SULFATE 2 MG/ML VIAL. IV PRN ×2 (14:56→18:24)
--- NOTE | 2020-01-28 15:27 | NUR ---
SS following for discharge planning. Pt's RN notified SS that pt needs hospice evaluation. Dr. De La Torre spoke with pt's family this morning. SS phoned and faxed referral to [facility], ; fax [phone]. SS will continue to follow for discharge planning.
[2020-01-28] MEDS: LACTOBACILLUS RHAMNOSUS GG 1 CAPSULE. PO SCH (19:49)
[2020-01-28] MEDS: HALOPERIDOL LACTATE 5 MG/ML VIAL. IVP PRN (20:25)
[2020-01-28] MEDS: diphenhydrAMINE 50 MG/ML VIAL IVP PRN (22:09)
[2020-01-29] VITALS (14 sets, daily range): BP systolic 79–112; BP diastolic 48–74
[2020-01-29] MEDS: HALOPERIDOL LACTATE 5 MG/ML VIAL. IVP PRN (01:17)
[2020-01-29] MEDS: diphenhydrAMINE 50 MG/ML VIAL IVP PRN ×2 (01:34→02:54)
[2020-01-29] MEDS: DEXMEDETOMIDINE 400 MCG in IV NORMAL SALINE 100ML 96 ML IV PRN ×3 (04:45→13:52)
[2020-01-29] MEDS: ALBUMIN HUMAN 5% 250 ML IV SCH (04:49)
[2020-01-29] MEDS: MORPHINE SULFATE 4 MG/ML VIAL. IV PRN ×2 (05:16→12:51)
[2020-01-29 06:37] LABS: CALCIUM 7.4 mg/dL (8.5-10.1); CREATININE 4.3 mg/dL (0.7-1.3); GFR 14.8; MAGNESIUM 2.2 mg/dL (1.8-2.4); PHOSPHORUS 4.7 mg/dL (2.6-4.7); POTASSIUM 4.4 mmol/L (3.5-5.1)
[2020-01-29] MEDS ORDERED: IV NORMAL SALINE 1000ML BAG 1,000 ML IV PRN ×2 (07:40)
[2020-01-29] MEDS ORDERED: ALBUMIN HUMAN 25% 200 ML IV ONE (07:45)
[2020-01-29] MEDS ORDERED: diphenhydrAMINE 50 MG/ML VIAL IV PRN ×2 (07:45)
[2020-01-29] MEDS ORDERED: DIALYSIS PATIENT. MC PRN (07:45)
[2020-01-29] MEDS ORDERED: ACETAMINOPHEN 500 MG TABLET PO PRN (07:45)
--- NOTE | 2020-01-29 08:00 | PDOC ---
Infectious Disease Note Subjective: Subjective Pt is sedated remains febrile Vital Signs: Vital Signs Vital Signs Date Time Temp Pulse Resp B/P (MAP) Pulse Ox O2 Delivery O2 Flow Rate FiO2 01/29/20 06:05 94 22 86/58 (67) 94 Nasal Cannula 2.0 01/29/20 04:00 99.2 99.2 Physical Exam: PHYSICAL EXAM HEENT: Pupils equally round. + icterus. Oral cavity pink and dry. Dentures in place. NECK: Supple. RT HDC site looks ok LUNGS: clear anteriorly CARDIAC: S1 and S2 regular. ABDOMEN: Nondistended, soft. No guarding or rebound. Bowel sounds present. hillman concentrated urine EXTREMITIES: No gross edema or cyanosis. SKIN: Warm to touch. No signs of rash. Jaundice. NEUROLOGIC unresponsive RT IJ looks ok, hdc ok Medications: Inpatient Meds: Current Medications Medications (Trade) Dose Ordered Sig/Akhil Start Time Stop Time Status Last Admin Dose Admin Acetaminophen (Tylenol) 500 mg 1X PRN PRN 01/29/20 07:45 01/30/20 07:44 Albumin Human 200 ml @ 200 mls/hr 1X ONCE 01/29/20 07:45 01/29/20 08:44 Albuterol/ Ipratropium (Duoneb) 3 ml 1X ONCE 01/26/20 08:45 01/26/20 08:46 DC 01/26/20 08:49 3 ML Atropine Sulfate (ATROPINE 0.5mg SYRINGE) 0.5 mg PRN Q5MIN PRN 01/26/20 18:45 Clonidine HCl (Catapres) 0.1 mg PRN Q1HR PRN 01/26/20 17:45 Dexmedetomidine HCl 400 mcg/ Sodium Chloride 100 ml @ 0 mls/hr CONT PRN 01/26/20 18:45 01/29/20 04:45 22.4 MLS/HR Diphenhydramine HCl (Benadryl) 25 mg 1X PRN PRN 01/29/20 07:45 01/30/20 07:44 Famotidine (Pepcid Vial) 20 mg 1X ONCE 01/26/20 08:45 01/26/20 08:46 DC 01/26/20 09:05 20 MG Haloperidol Lactate (Haldol Inj) 5 mg PRN Q4HRS PRN 01/26/20 17:45 01/29/20 01:17 5 MG Info (PHARMACY MONITORING -- do not chart) 1 each PRN DAILY PRN 01/29/20 07:45 Lactobacillus Rhamnosus (Culturelle) 1 cap BID 01/28/20 21:00 Lidocaine HCl (Buffered Lidocaine 1%) 3 ml STK-MED ONCE 01/27/20 11:08 01/27/20 11:08 DC Lorazepam (Ativan Inj) 4 mg PRN Q1HR PRN 01/26/20 17:45 01/29/20 04:49 4 MG Lorazepam (Ativan) 1 mg PRN Q6HRS PRN 01/26/20 15:15 UNV Meropenem 500 mg/ Sodium Chloride 50 ml @ 100 mls/hr Q12HR 01/27/20 12:15 01/28/20 20:00 100 MLS/HR Morphine Sulfate (Morphine Sulfate) 4 mg PRN Q2HR PRN 01/28/20 14:45 01/29/20 05:16 4 MG Norepinephrine Bitartrate 8 mg/ Dextrose 258 ml @ 14.416 mls/ hr CONT PRN 01/26/20 22:00 01/28/20 09:35 18.8 MLS/HR Ondansetron HCl (Zofran) 4 mg PRN Q8HRS PRN 01/26/20 10:15 01/27/20 10:14 DC Pantoprazole Sodium (PROTONIX VIAL for IV PUSH) 40 mg DAILYAC 01/28/20 10:00 01/28/20 09:34 40 MG Pantoprazole Sodium (Protonix) 40 mg DAILYAC 01/27/20 11:00 01/28/20 09:23 DC Piperacillin Sod/ Tazobactam Sod (Zosyn Per Pharmacy) 1 each PRN DAILY PRN 01/26/20 13:30 01/27/20 09:46 DC Piperacillin Sod/ Tazobactam Sod 2.25 gm/Sodium Chloride 50 ml @ 100 mls/hr Q8HRS 01/27/20 14:00 01/27/20 11:58 DC Potassium Chloride 20 meq/ Sodium Chloride 1,010 ml @ 150 mls/hr Q6H44M 01/26/20 10:45 01/26/20 21:03 DC 01/26/20 12:46 150 MLS/HR Potassium Chloride/Sodium Chloride 1,000 ml @ 150 mls/hr Q6H40M 01/26/20 21:30 01/29/20 07:53 150 MLS/HR Potassium Chloride/Water 100 ml @ 100 mls/hr Q1H 01/28/20 12:00 01/28/20 13:59 DC 01/28/20 14:04 100 MLS/HR Potassium Chloride (Klor-Con) 40 meq 1X ONCE 01/26/20 10:15 01/26/20 10:17 DC 01/26/20 10:27 40 MEQ Sodium Chloride 1,000 ml @ 400 mls/hr Q2H30M PRN 01/29/20 07:40 01/29/20 19:39 Sodium Chloride (Normal Saline Flush) 10 ml 1X PRN PRN 01/27/20 15:15 01/28/20 15:14 DC Thiamine Mononitrate (Vitamin B-1) 100 mg DAILY 01/28/20 09:00 Vancomycin HCl (Vanco Per Pharmacy) 1 each PRN DAILY PRN 01/26/20 13:30 01/26/20 16:14 DC 01/26/20 14:13 1 EACH Vancomycin HCl (Vancomycin Random Level) 1 each 1X ONCE 01/28/20 14:00 01/26/20 16:16 DC Vancomycin HCl 1.75 gm/Sodium Chloride 500 ml @ 250 mls/hr ONCE ONCE 01/26/20 14:30 01/26/20 16:29 DC 01/26/20 13:41 250 MLS/HR Labs: Lab Laboratory Tests Test 01/28/20 13:00 01/29/20 06:00 Ammonia < 10 mcmol/L (11-34) Sodium Level 146 mmol/L (136-145) Potassium Level 4.4 mmol/L (3.5-5.1) Chloride Level 111 mmol/L (98-107) Carbon Dioxide Level 19 mmol/L (21-32) Anion Gap 16 (6-14) Blood Urea Nitrogen 81 mg/dL (8-26) Creatinine 4.3 mg/dL (0.7-1.3) Estimated GFR (Cockcroft-Gault) 14.8 Glucose Level 92 mg/dL (70-99) Calcium Level 7.4 mg/dL (8.5-10.1) Phosphorus Level 4.7 mg/dL (2.6-4.7) Magnesium Level 2.2 mg/dL (1.8-2.4) Objective: Assessment: Fever source GI Heavy ETOH use ETOH withdrawl Questionable sepsis. Leukocytosis. Acute kidney injury with electrolyte imbalances. Acute hepatic failure.Hyperbilirubinemia,liver mass Likely hepatorenal syndrome Marijhuana use Tobaccoism. Thrombocytopenia Plan: Plan of Care Continue Merrem ,was on zosyn s/p vancomycin once fever could be from liver mass vs inflammation awaiting transition to possible hospice per team F/U BC Maintain aspiration precautions D/w nursing Critically ill MONICA BOSTON MD Jan 29, 2020 08:00
[2020-01-29] MEDS: PANTOPRAZOLE IV PUSH 40 MG VIAL. IVP SCH (08:57)
[2020-01-29] MEDS: LACTOBACILLUS RHAMNOSUS GG 1 CAPSULE. PO SCH (09:00)
[2020-01-29] MEDS: THIAMINE 100 MG TABLET. PO SCH (09:00)
[2020-01-29] MEDS: MEROPENEM 500 MG in IV NORMAL SALINE 50ML 50 ML IV SCH (09:09)
--- NOTE | 2020-01-29 09:22 | PDOC ---
Objective: Objective: D/w nurse - hypotensive - she thinks family is meeting with Hospice this m orning. Surgery and oncology consults along w/ MRI and FFP transfusion canceled by nurse yesterday, assuming after discussion w/ Dr. De La Torre/family. No labs today. Vital Signs: Vital Signs Date Time Temp Pulse Resp B/P (MAP) Pulse Ox O2 Delivery O2 Flow Rate FiO2 01/29/20 06:05 94 22 86/58 (67) 94 Nasal Cannula 2.0 01/29/20 04:00 99.2 99.2 PE: GEN: ill LUNGS: CTAB HEART: RRR ABD: soft NEURO/PSYCH: sedated A/P: Alcohol abuse/withdrawal Fever, leukocytosis Elevated LFTs, coagulopathy, thrombocytopenia Right hepatic lobe mass, normal AFT, neg Hepatitis panel -- Discussion w/ staff and review of chart indicate family wishes for Hospice. Any additional GI recs per Dr. Hewitt. Hemodynamically unstable?: Yes Is patient in severe pain?: No Is NPO status required?: No NBA BACON Jan 29, 2020 09:22
--- NOTE | 2020-01-29 11:42 | PDOC ---
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 History of Present Illness History of Present Illness [id number] Patient seen and examined in the ICU He is unresponsive and jaundiced I called his , she now wants Comfort Care only Chart reviewed Discussed with RN Discussed with Theresa (neonatal social worker) [id number] Patient seen and examined Had a lengthy discussion with the family They now want to go with hospice and comfort care I called case management Chart reviewed Discussed with RN [id number] Patient seen and examined He is currently getting a central line I assisted with central line placement He is requiring very high doses of Precedex Ativan and Haldol I added and when necessary Zyprexa as well Called his and spoke with her and explained his prognosis is poor long-term Discussed with RN Chart reviewed Vitals/I&O Vitals/I&O: Vital Signs Date Time Temp Pulse Resp B/P (MAP) Pulse Ox O2 Delivery O2 Flow Rate FiO2 01/29/20 11:18 96 29 102/51 (68) Nasal Cannula 2.0 01/29/20 10:18 93 01/29/20 08:11 98.0 98.0 I & O 0 01/28/20 01/28/20 01/29/20 15:00 23:00 07:00 Intake Total 250 ml 3081 ml 1522 ml Output Total 315 ml 105 ml 550 ml Balance -65 ml 2976 ml 972 ml Physical Exam Physical Exam: HEENT: Pupils equally round. + icterus. Oral cavity pink and dry. Dentures in place. NECK: Supple. RT HDC site looks ok LUNGS: clear anteriorly CARDIAC: S1 and S2 regular. ABDOMEN: Nondistended, soft. No guarding or rebound. Bowel sounds present. hillman concentrated urine EXTREMITIES: No gross edema or cyanosis. SKIN: Warm to touch. No signs of rash. Jaundice. NEUROLOGIC unresponsive RT IJ looks ok, hdc ok General: severe distress Heart: No murmurs Lungs: Crackles Extremities: No clubbing Skin: Other (jaundiced) Labs Labs: Laboratory Tests Test 01/28/20 13:00 01/29/20 06:00 Ammonia < 10 mcmol/L (11-34) Sodium Level 146 mmol/L (136-145) Potassium Level 4.4 mmol/L (3.5-5.1) Chloride Level 111 mmol/L (98-107) Carbon Dioxide Level 19 mmol/L (21-32) Anion Gap 16 (6-14) Blood Urea Nitrogen 81 mg/dL (8-26) Creatinine 4.3 mg/dL (0.7-1.3) Estimated GFR (Cockcroft-Gault) 14.8 Glucose Level 92 mg/dL (70-99) Calcium Level 7.4 mg/dL (8.5-10.1) Phosphorus Level 4.7 mg/dL (2.6-4.7) Magnesium Level 2.2 mg/dL (1.8-2.4) Assessment and Plan Assessmemt and Plan Problems Medical Problems: (1) Acute hepatitis Status: Acute (2) Acute renal failure Status: Acute (3) Hypokalemia Status: Acute 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 Plan Comfort Care When necessary morphine When necessary Ativan When necessary Zyprexa Continue Haldol He is auto anticoagulated so won't need anymore DVT prophylaxis Long-term prognosis extremely guarded I think his life expectancy is measured in days Comment Review of Relevant I have reviewed the following items minda (where applicable) has been applied. Medications: Current Medications Medications (Trade) Dose Ordered Sig/Akhil Route PRN Reason Start Time Stop Time Status Last Admin Dose Admin Potassium Chloride/Water 100 ml @ 100 mls/hr Q1H IV 01/28/20 12:00 01/28/20 13:59 DC 01/28/20 14:04 Morphine Sulfate (Morphine Sulfate) 2 mg PRN Q2HR PRN IV PAIN 01/28/20 14:45 01/28/20 18:24 Morphine Sulfate (Morphine Sulfate) 4 mg PRN Q2HR PRN IV PAIN 01/28/20 14:45 01/29/20 05:16 Hemodynamically unstable?: Yes Is patient in severe pain?: No Is NPO status required?: No DEVIN PUGA III DO Jan 29, 2020 11:42
--- NOTE | 2020-01-29 13:24 | NUR ---
Dr. De La Torre & this RN have called patient's . IV fluids, IV antibiotics, IV Albumin to be stopped & patient to be comfort care only. Patient's O2 saturations lower than this morning ranging from 40s-70s currently. Patient was pulled up in bed. 2L O2 NC still currently on patient. Patient's notified of this condition & has chose not to come up, she does not want to see him like this. Will continue to monitor.
--- NOTE | 2020-01-29 14:04 | NUR ---
SW following. Discussed with [facility]. [facility] met with pt's . Pt will be switched to inpatient hospice. Per Magdiel, contract has been signed by [facility]. [facility] RN notifying pt's RN. SW will continue to follow.
--- NOTE | 2020-01-29 15:00 | NUR ---
Around 1417, patient went bradycardic & eventually at 1449. Patient's notified about 5 minutes after . All physicians on case were notified of patient's , received call backs from Dr. De La Torre & Dr. Hema Cueto. Addendum: 01/29/20 at 1726 by KIMMIE NIEVES RN Patient's hillman catheter removed.
== END 2020-01-29 14:49 | disposition expired | DRG 441 ==
LOC: ER 08:04 → 2 SOUTH 10:39 → 1 WEST ICU 10:52
PROVIDERS: ADMIT Internal Medicine; ATTEND Internal Medicine
PROC: 02HV33Z Insertion of Infusion Device into Superior Vena Cava, Percutaneous Approach (ICD-10-PCS; principal; 2020-01-27)
PROC: B548ZZA Ultrasonography of Superior Vena Cava, Guidance (ICD-10-PCS; 2020-01-27)
DX: K72.00 Acute and subacute hepatic failure without coma (principal); K76.7 Hepatorenal syndrome; K92.0 Hematemesis; N17.9 Acute kidney failure, unspecified; E87.1 Hypo-osmolality and hyponatremia; E87.2 Acidosis; D68.4 Acquired coagulation factor deficiency; D69.6 Thrombocytopenia, unspecified; E87.6 Hypokalemia; F17.210 Nicotine dependence, cigarettes, uncomplicated; K70.10 Alcoholic hepatitis without ascites; N18.9 Chronic kidney disease, unspecified; Y90.9 Presence of alcohol in blood, level not specified; F10.10 Alcohol abuse, uncomplicated; E83.51 Hypocalcemia; F12.90 Cannabis use, unspecified, uncomplicated; R16.0 Hepatomegaly, not elsewhere classified; Z83.3 Family history of diabetes mellitus; I95.9 Hypotension, unspecified
CPT/HCPCS: 36415; 36556; 71045; 76700; 76937; 80048; 80053; 82105; 82140; 82550; 83605; 83690; 83735; 84100; 85007; 85025; 85610; 86705; 86706; 86709; 86803; 87040; 87340; 87804; 93005; 94640; 96361; 96365; 96375; 99291; C1892; C9113; J1200; J1630; J2060; J2185; J2270; J2543; J3370; J3480; J3490; J7030; J7040; J7060; P9041; P9045; G0378